=== PATIENT | male | born 1965 ===

== ENCOUNTER 2021-01-23 14:48 | Outpatient (REF) | payer OTHER, SELFPAY | END 2021-01-23 14:49 | disposition home or self-care (01) | LOC: HO.MANLNP 14:48 | PROVIDERS: PCP Physician Assistant; Visit Provider Physician Assistant | DX: N39.0 Urinary tract infection, site not specified (principal) | CPT/HCPCS: 87086 ==

== ENCOUNTER 2022-11-12 15:05 | Outpatient (REF) | payer OTHER, SELFPAY ==
[2022-11-19 19:58] LABS: Testosterone, Total 226 ng/dL (250-1100)
== END 2022-11-12 15:06 | disposition home or self-care (01) ==
LOC: HO.MANLDS 15:05
PROVIDERS: Visit Provider Physician Assistant
DX: R53.83 Other fatigue (principal)
CPT/HCPCS: 36415; 84402; 84403

== ENCOUNTER 2025-05-28 10:56 | Outpatient (REF) | payer OTHER, SELFPAY ==
[2025-05-28 13:41] LABS: MANUAL DIFF FLAG NO
[2025-05-28 13:48] LABS: Hematocrit 33.4 % (42.0-52.0); Hemoglobin 9.8 g/dl (14.0-18.0); Imm Gran Abs Auto 0.05 X10*3/uL (0.00-0.03); Imm Gran Pct Auto 0.8 % (0.0-0.4); Lymphocytes Absolute Auto 1.6 X10*3/uL (1.2-4.9); Mean Corpuscular HGB Conc 29.3 g/dl (31.0-36.0); Mean Corpuscular Hemoglobin 20.3 pg (27.0-33.0); Mean Corpuscular Volume 69.2 fL (80.0-98.0); NRBC Abs Auto 0.000 X10*3/uL (0.0-0.012); NRBC Pct Auto 0.0 /100WBC (0.0-0.2); Platelet Count 324 X10*3/uL (160-400); Red Blood Count 4.83 X10*6/uL (4.60-5.80); White Blood Count 6.5 X10*3/uL (4.8-10.8)
--- OUTSIDE RECORDS SUMMARY | 2025-05-28 14:16 | XMS_ITS | Encounter Summary ---
Author Organization [facility] Address [address] [place] [address] [place] [address] Phone Care Team Providers Care Manager Small Business Name Role Phone LidaHarish rosas Primary Care Provider [phone] Britt Can MBBS Unavailable [phone] Harish Faria DO Primary Care Provider [phone] Encounter Details Date Type Department Care Team (Latest Contact Info) Description 08/18/2017 Transcribe Orders [facility] Phleb Jemma [address] [address] Gonzalo Bautista MD [address] [place] [address], [address] [address] [email or web address] 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) Social History Tobacco Use Types Packs/Day Years Used Date Smoking Tobacco: Never Smokeless Tobacco: Never Sex and Gender Information Value Date Recorded Sex Assigned at Male 10/10/2017 11:56 AM EDT Legal Sex Male 9:41 PM EDT Gender Identity Male 10/10/2017 11:56 AM EDT Sexual Orientation Straight 10/10/2017 11 :56 AM EDT documented as of this encounter Plan of Treatment Upcoming Encounters Date Type Department Care Team (Late st Contact Info) Description 06/19/2025 9:00 AM EST Office Visit [facility] Pulmonary, Allergy and Critical Care Medicine 10 [facility] [place] [address] Emmanuel Garcia MD 10 [address] [place] [address] [email or web address] 07/05/2025 8:45 AM EST Office Visit [facility] 10 [place] [address] Unknown, Unknown, Apple Junior PA-C [address] [place] [address] 07/31/2025 12:10 PM EST Office Visit [facility] End[facility]inology [address] [place] [address] Marlo Durand DO 22 [place] [address] documented as of this encounter Results * PSA (screening) (08/18/2017 10:48 AM EST) PSA 0.70 0 - 4.00 ng/mL [facility] Blood 08/18/2017 10:4 8 AM EST 08/18/2017 10:50 AM EST us Gonzalo Bautista MD LAB BLOOD BKR ORDERABLES Final Result [facility] 30 [place] [address] documented in this encounter Visit Diagnoses Diagnosis Benign localized hyperplasia of prostate with urinary retention- Primary Benign localized hyperplasia of prostate with urinary obstruction and other lower urinary tract symptoms (LUTS) documented in this encounter Additional Health Concerns Infection Onset Date Last Indicated Resolved Time Resp-Risk 05/15/2025 05/15/2025 05/15/2025 5:22 PM EST Influenza A 05/15/2025 05/15/2025 05/22/2025 7:07 PM EST documented as of this encounter Care Teams Manager Small Business Relationship Specialty Start Date End Date Harish Faria DO PCP - General 03/31/17 08/14/24 Harish Faria DO [address] [place] [address] PCP - General Internal Medicine 08/15/24 Britt Can MBBS [address] [place] [address] [email or web address] Primary Oncologist Medical Oncology 06/12/24 documented as of this encounter Additional Source Comments The information contained in this document represents components of the legal health record. It is not the complete legal health record.[facility]
--- OUTSIDE RECORDS SUMMARY | 2025-05-28 14:16 | XMS_ITS | Encounter Summary ---
Author Organization [facility] Address [address] [place] [address] Phone Care Team Providers Care Rock Splitter Name Role Phone LidaHarish rosas Primary Care Provider [phone] Britt Can MBBS Unavailable [phone] Harish Faria DO Primary Care Provider [phone] Encounter Details Date Type Department Care Team (Latest Contact Info) Description 02/10/2024 Transcribe Orders Virtual Department [address] [place] [address] Selma Ryder PA [address] [place] [address] [place] [address] Acute bronchitis, unspecified organism (Primary Dx) Social History Tobacco Use Types Packs/Day Years Used Date Smoking Tobacco: Never Smokeless Tobacco: Never Alcohol Use Standard Drinks/Week Comments Yes 1 (1 standard drink = 0.6 oz pur e alcohol) Education Answer Date Recorded Are you interested in more education? Not on leanne e 10/08/2022 Are you concerned about learning? Not on file 10/08/2022 No 10/08/2022 No 10/08/2022 Digital Access Answer Date Recorded No 11/05/2022 No 11/05/2022 Reliable internet access at home? Not on file 11/05/2022 Device with a working camera? Not on file Intimate Partner Violence Answer Date R ecorded Are you denied basic needs s uch as food, clothing, or medical care? No 07/13/2023 In the past 12 months have y ou been in a relationship with a person who hurts, threatens, or tries to control you? No 07/13/2023 Are you denied basic needs s uch as food, clothing, or medical care? No 07/13/2023 In the past 12 months have y ou been in a relationship with a person who hurts, threatens, or tries to control you? No 07/13/2023 Sex and Gender Information Value Date Recorded [...] Pulmonary, Allergy and Critical Care Medicine 10 [place] [address] Emmanuel Garcia MD [address] [place] [address] [email or web address] 07/05/2025 8:45 AM EST Office Visit [facility] [address] [place] [address] Unknown, Unknown, Apple Junior PA-C [address] [place] [address] 07/31/2025 12:10 PM EST Office Visit [facility] [address] [place] [address] Marlo Durand DO 22 [place] [address] documented as of this encounter Visit Diagnoses Diagnosis Acute bronchitis, unspecified organism- Primary documented in this encounter Additional Health Concerns Infection Onset Date Last Indicated Resolved Time Resp-Risk 05/15/2025 05/15/2025 05/15/2025 5:22 PM EST Influenza A 05/15/2025 05/15/2025 05/22/2025 7:07 PM EST documented as of this encounter Care Teams Rock Splitter Relationship Specialty Start Date End Date LidaHarish rosasDO [email or web address] PCP - General 03/31/17 08/14/24 Harish Faria DO [address] [place] [address] [email or web address] PCP - General Internal Medicine 08/15/24 Britt Can MBBS [address] [place] [address] Primary Oncologist Medical Oncology 06/12/24 documented as of this encounter Additional Source Comments The information contained in this document represents components of the legal health record. It is not the complete legal health record.[facility]
--- OUTSIDE RECORDS SUMMARY | 2025-05-28 14:16 | XMS_ITS | Encounter Summary ---
Author Organization [facility] Address [address] [place] [address] Phone Care Team Providers Care Claim Rep Name Role Phone Britt Can ARTIS Unavailable [phone] Harish Faria DO Primary Care Provider [phone] Encounter Details Date Type Department Care Team (Late st Contact Info) Description 05/15/2025 Procedure Pass [facility] 30 [place] [address] Social History Tobacco Use Types Packs/Day Years Used Date Smoking Tobacco: Never Smokeless Tobacco: Never Alcohol Use Standard Drinks/Week Comments Not Currently 0 (1 standard drink = 0.6 oz pur e alcohol) 0-1 month Education Answer Date Recorded Are you interested in more education? Not on leanne e 10/08/2022 Are you concerned about learning? Not on file 10/08/2022 No 10/08/2022 No 10/08/2022 Food Answer Date Recorded Within the past 6 months we worried whether our food would run out before we got money to buy more. Never True 05/15/2025 Within the past 6 months the food we bought just didn't last and we didn't have enough money to get more. Never True Residential Stability Answer Date Recor ded What is your housing situation today? I have jed sing 05/15/2025 How many times have you move d in the past 12 months? Zero (I did not move) 05/15/2025 Paying for Meds Answer Date Recorded Do you have trouble paying for medicines? No 05/15/2025 Paying Utility Bills Answer Date Record ed Do you have trouble paying your heating or elect ricity bill? No 05/15/2025 Transportation Answer Date Recorded Has the lack of transportati on kept you from medical appointments or from getting medications? No 05/15/2025 Digital Access Answer Date Recorded No 05/15/2025 Yes 05/15/2025 Do you have reliable internet access at home? Ye s 05/15/2025 Do you have a device (e.g., phone, tablet, computer) with a working camera? Yes 05/15/2025 Intimate Partner Violence Answer Date R ecorded Are you denied basic needs s uch as food, clothing, or medical care? No 05/15/2025 In the past 12 months have y ou been in a relationship with a person who hurts, threatens, or tries to control you? No 05/15/2025 Are you denied basic needs s uch as food, clothing, or medical care? No 05/15/2025 In the past 12 months have y ou been in a relationship with a person who hurts, threatens, or tries to control you? No 05/15/2025 Sex and Gender Information Value Date Recorded Sex Assigned at Male 10/10/2017 11:56 AM EDT Legal Sex Male 9:41 PM EDT Gender Identity Male 10/10/2017 11:56 AM EDT Sexual Orientation Straight 10/10/2017 11 :56 AM EDT documented as of this encounter Functional Status * Calculated C-SSRS Risk Score (Lifetime/Recent) Answer Date of Assessment Author No Risk Indicated 05/15/2025 3:03 PM Adrianne Andrade RN * [place] Suicide Severity Rating Scale (Screener/Recent Self-Report) Question Answer Date of Assessment Author 1. Wish to be (Past 1 Month) No 025 3:03 PM Adrianne Andrade RN 2. Non-Specific Active Suici mary Thoughts (Past 1 Month) No 05/15/2025 3:03 PM Hayden Andrade RN 6. Suicidal Behavior (Lifetime) No 3:03 PM Adrianne Andrade RN documented as of this encounter Plan of Treatment Upcoming Encounters Date Type Department Care Team (Late st Contact Info) Description 06/19/2025 9:00 AM EST Office Visit [facility] Pulmonary, Allergy and Critical Care Medicine 10 [facility] [place] [address] Emmanuel Garcia MD 10 [facility] 2nd [place] [address] [email or web address] 07/05/2025 8:45 AM EST Office Visit [facility] Gastroenterology [facility] 10 [place] [address] Unknown, Unknown, Apple Junior PA-C [address] [address] 07/31/2025 12:10 PM EST Office Visit [facility] 22 [place] [address] Marlo Durand DO [address] [place] [address] documented as of this encounter Visit Diagnoses Not on filedocumented in this encounter Additional Health Concerns Infection Onset Date Last Indicated Resolved Time Resp-Risk 05/15/2025 05/15/2025 05/15/2025 5:22 PM EST Influenza A 05/15/2025 05/15/2025 05/22/2025 7:07 PM EST documented as of this encounter Care Teams Claim Rep Relationship Specialty Start Date End Date Harish Faria DO [address] [facility] [place] [address] PCP - General Internal Medicine 08/15/24 Britt Can MBBS 30 [place] [address] Primary Oncologist Medical Oncology 06/12/24 documented as of this encounter Additional Source Comments The information contained in this document represents components of the legal health record. It is not the complete legal health record.[facility]
--- OUTSIDE RECORDS SUMMARY | 2025-05-28 14:16 | XMS_ITS | Encounter Summary ---
Author Organization [facility] Address [address] [place] [address] Phone Care Team Providers Care Skimmer Scoop Operator Name Role Phone Britt Can ARTIS Unavailable [phone] Harish Faria DO Primary Care Provider Encounter Details Date Type Department Care Team (Latest Contact Info) Description 01/22/2025 Transcribe Orders Virtual Department 30 [place] [address] Selma Ryder PA 6 [facility] [place] [address] Acute bronchitis, unspecified organism (Primary Dx) Social [...] got money to buy more. Never True 09/20/2024 Within the past 6 months the food we bought just didn't last and we didn't have enough money to get more. Never True Residential Stability Answer Date Recor ded What is your housing situation today? I have jed sing 09/20/2024 How many times have you move d in the past 12 months? Zero (I did not move) 09/20/2024 Paying for Meds Answer Date Recorded Do you have trouble paying for medicines? No 09/20/2024 Paying Utility Bills Answer Date Record ed Do you have trouble paying your heating or elect ricity bill? No 09/20/2024 Transportation Answer Date Recorded Has the lack of transportati on kept you from medical appointments or from getting medications? No 09/20/2024 Digital Access Answer Date Recorded No 09/20/2024 Yes 09/20/2024 Do you have reliable internet access at home? Ye s 09/20/2024 Do you have a device (e.g., phone, tablet, computer) with a working camera? Yes 09/20/2024 Intimate Partner Violence Answer Date R ecorded Are you denied basic needs s uch as food, clothing, or medical care? No 09/20/2024 In the past 12 months have y ou been in a relationship with a person who hurts, threatens, or tries to control you? No 09/20/2024 Are you denied basic needs s uch as food, clothing, or medical care? No 09/20/2024 In the past 12 months have y ou been in a relationship with a person who hurts, threatens, or tries to control you? No 09/20/2024 Sex and Gender Information Value Date Recorded [...] Pulmonary, Allergy and Critical Care Medicine 10 [place] [address] Emmanuel Garcia MD [address] [place] [address] [email or web address] 07/05/2025 8:45 AM EST Office Visit [facility] 10 [place] [address] Unknown, Unknown, Apple Junior, PAYogeshC 10 [facility] 2 [place] [address] [email or web address] 07/31/2025 12:10 PM EST Office Visit [facility] [address] [place] [address] Marlo Durand, DO 22 [place] [address] [email or web address] documented as of this encounter Results * XR CHEST PA AND LATERAL 2 VIEWS (01/23/2025 12:34 PM EDT) Anatomical Region Laterality Modality Chest Computed Radiogr aphy 01/23/2025 12:5 6 PM EDT Impressions 01/23/2025 12:57 PM EDT No focal infiltrate or other acute cardiopulmonary abnormality. Narrative 01/23/2025 12:57 PM EDT XR CHEST PA AND LATERAL 2 VIEWS Referring clinician's provided indication for this examination in [facility]: Bronchitis; bronchitis COMPARISON: 01/04/2023 and 10/27/2022 chest radiographs FINDINGS: Devices/Tubes/Lines: None. Lungs: Moderately well-expanded without focal airspace infiltrate or significant interstitial changes. Pleura: No pleural effusion or pneumothorax. Heart/Mediastinum: Heart and pulmonary vessels within normal limits in size. Bones/Soft Tissues: Visualized bony thorax intact. Flowing ossification of the anterior longitudinal ligament in the thoracic spine suggesting underlying DISH. Procedure Note Bolivar Rivera MD - 01/23/2025 XR CHEST PA AND LATERAL 2 VIEWS Referring clinician's provided indication for this examination in [facility]:Bronchitis; bronchitis COMPARISON: 01/04/2023 and 10/27/2022 chest radiographs FINDINGS: Devices/Tubes/Lines: None. Lungs: Moderately well-expanded without focal airspace infiltrate orsignificant interstitial changes. Pleura: No pleural effusion or pneumothorax. Heart/Mediastinum: Heart and pulmonary vessels within normal limits insize. Bones/Soft Tissues: Visualized bony thorax intact. Flowing ossification ofthe anterior longitudinal ligament in the thoracic spine suggestingunderlying DISH. IMPRESSION: No focal infiltrate or other acute cardiopulmonary abnormality. us Selma PRIETO IMG XR CHEST Final Resul t documented in this encounter Visit Diagnoses Diagnosis Acute bronchitis, unspecified organism- Primary Acute bronchitis, unspecified organism documented in this encounter Additional Health Concerns Infection Onset Date Last Indicated Resolved Time Resp-Risk 05/15/2025 05/15/2025 05/15/2025 5:22 PM EST Influenza A 05/15/2025 05/15/2025 05/22/2025 7:07 PM EST documented as of this encounter Care Teams Skimmer Scoop Operator Relationship Specialty Start Date End Date Harish Faria DO [address] [place] [address] [email or web address] PCP - General Internal Medicine 08/15/24 Britt Can MBBS [address] [place] [address] [email or web address] Primary Oncologist Medical Oncology 06/12/24 documented as of this encounter Additional Source Comments The information contained in this document represents components of the legal health record. It is not the complete legal health record.[facility]
--- OUTSIDE RECORDS SUMMARY | 2025-05-28 14:16 | XMS_ITS | Encounter Summary ---
Author Organization [facility] Address [address] [place] [address] Phone Care Team Providers Care Detention Sergeant Name Role Phone Harish Faria DO Primary Care Provider [phone] Britt Can MBBS Unavailable [phone] Harish Faria DO Primary Care Provider [phone] Encounter Details Date Type Department Care Team (Late st Contact Info) Description 07/13/2023 Procedure Pass [facility] Endoscopy Admitting Dept Virtual Department 30 [place], [place] [id number] Social History Tobacco Use Types Packs/Day Years [...] Pulmonary, Allergy and Critical Care Medicine 10 [place] [address] Emmanuel Garcia MD 10 [facility] 2nd [place] [address] [email or web address] 07/05/2025 8:45 AM EST Office Visit [facility] Gastroenterology Clinic 10 [place] [address] Unknown, Unknown, Apple Junior PAViridiana [address] [address] 07/31/2025 12:10 PM EST Office Visit [facility] 22 [place] [address] Marlo Durand DO 22 [place] [address] documented as of this encounter Visit Diagnoses Not on filedocumented in this encounter Additional Health Concerns Infection Onset Date Last Indicated Resolved Time Resp-Risk 05/15/2025 05/15/2025 05/15/2025 5:22 PM EST Influenza A 05/15/2025 05/15/2025 05/22/2025 7:07 PM EST documented as of this encounter Care Teams Detention Sergeant Relationship Specialty Start Date End Date Harish Faria DO [email or web address] PCP - General 03/31/17 08/14/24 LidaHarish rosasDO [address] [place] [address] PCP - General Internal Medicine 08/15/24 Britt Can MBBS 30 [place] [address] [email or web address] Primary Oncologist Medical Oncology 06/12/24 documented as of this encounter Additional Source Comments The information contained in this document represents components of the legal health record. It is not the complete legal health record.[facility]
--- OUTSIDE RECORDS SUMMARY | 2025-05-28 14:16 | XMS_ITS | Encounter Summary ---
Author Organization [facility] Address [address] [place] [address] Phone Care Team Providers Care Medical Record Administrator Name Role Phone Britt Can ARTIS Unavailable [phone] Harish Faria DO Primary Care Provider [phone] Encounter Details Date Type Department Care Team (Late st Contact Info) Description 05/15/2025 Procedure Pass [facility] 30 [place] [address] Social History Tobacco Use Types Packs/Day Years [...] 05/15/2025 3:03 PM Adrianne Andrade RN * [place] Suicide Severity Rating Scale (Screener/Recent Self-Report) Question [...] Pulmonary, Allergy and Critical Care Medicine 10 [facility] [place] [address] Emmanuel Garcia MD 10 [facility] 2nd [place] [address] [email or web address] 07/05/2025 8:45 AM EST Office Visit [facility]astro[facility]ology Clinic 10 [place] [address] Unknown, Unknown, Apple Junior PA-C [address] [address] 07/31/2025 12:10 PM EST Office Visit [facility] 22 [place] [address] Marlo Durand DO [address] [place] [address] documented as of this encounter Visit Diagnoses Not on filedocumented in this encounter Additional Health Concerns Infection Onset Date Last Indicated Resolved Time Resp-Risk 05/15/2025 05/15/2025 05/15/2025 5:22 PM EST Influenza A 05/15/2025 05/15/2025 05/22/2025 7:07 PM EST documented as of this encounter Care Teams Medical Record Administrator Relationship Specialty Start Date End Date Harish Faria DO [address] [place] [address] PCP - General Internal Medicine 08/15/24 Britt Can MBBS 30 [place] [address] Primary Oncologist Medical Oncology 06/12/24 documented as of this encounter Additional Source Comments The information contained in this document represents components of the legal health record. It is not the complete legal health record.[facility]
--- OUTSIDE RECORDS SUMMARY | 2025-05-28 14:16 | XMS_ITS | Encounter Summary ---
Author Organization [facility] Address [address] [place] [address] [place] [address] Phone Care Team Providers Care Cryptological Technician Name Role Phone LidaHarish rosas Primary Care Provider [phone] Britt Can MBBS Unavailable [phone] Harish Faria DO Primary Care Provider [phone] Encounter Details Date Type Department Care Team (Latest Contact Info) Description 05/12/2021 Transcribe Orders Virtual Department 30 [place] [address] Selma Ryder PA [address] [place] [address] Acute cough (Primary Dx) Social History Tobacco Use Types Packs/Day Years Used Date Smoking Tobacco: Never Smokeless Tobacco: Never Alcohol Use Standard Drinks/Week Comments Yes 0 (1 standard drink = 0.6 oz pur e alcohol) occassionally Sex and Gender Information Value Date Recorded [...] Critical Care Medicine 10 [facility] [place], [place] [id number] Emmanuel Garcia MD 10 [facility] 2nd [place] [address] [email or web address] 07/05/2025 8:45 AM EST Office Visit [facility] 10 [place] [address] Unknown, Unknown, Apple Junior, PA-C [address] [address] 07/31/2025 12:10 PM EST Office Visit [facility] 22 [place] [address] Marlo Durand DO 22 [place] [address] documented as of this encounter Results * XR CHEST PA AND LATERAL 2 VIEWS (05/22/2021 11:45 AM EST) Anatomical Region Laterality Modality Chest Computed Radiogr aphy 05/22/2021 11:4 9 AM EST Impressions 05/22/2021 11:51 AM EST No evidence of active cardiopulmonary disease. Narrative 05/22/2021 11:51 AM EST HISTORY: Acute cough. COMPARISON: Chest x-rays from 10/10/2017 to 02/26/2019. FINDINGS: PA and lateral views of the chest obtained. The lungs appear clear. No pleural effusions or pneumothorax. Great vessel and cardiomediastinal contours are stable. No other significant changes. Procedure Note Lv Montero MD - 05/22/2021 HISTORY: Acute cough. COMPARISON: Chest x-rays from 10/10/2017 to 02/26/2019. FINDINGS: PA and lateral views of the chest obtained. The lungs appear clear. No pleural effusions or pneumothorax. Great vessel and cardiomediastinal contours are stable. No other significant changes. IMPRESSION: No evidence of active cardiopulmonary disease. us Selma PRIETO IMG XR CHEST Final Resul t documented in this encounter Visit Diagnoses Diagnosis Acute cough- Primary Acute cough documented in this encounter Additional Health Concerns Infection Onset Date Last Indicated Resolved Time Resp-Risk 05/15/2025 05/15/2025 05/15/2025 5:22 PM EST Influenza A 05/15/2025 05/15/2025 05/22/2025 7:07 PM EST documented as of this encounter Care Teams Cryptological Technician Relationship Specialty Start Date End Date Harish Faria DO PCP - General 03/31/17 08/14/24 Harish Faria DO [address] [place] [address] PCP - General Internal Medicine 08/15/24 Britt Can MBBS 30 [place] [address] Primary Oncologist Medical Oncology 06/12/24 documented as of this encounter Additional Source Comments The information contained in this document represents components of the legal health record. It is not the complete legal health record.[facility]
--- OUTSIDE RECORDS SUMMARY | 2025-05-28 14:16 | XMS_ITS | Encounter Summary ---
Author Organization Located [facility] Address [address] [place] [address] Drive [address] [place] [address] Phone Care Team Providers Care Job Counselor Name Role Phone Giana Harish Cabrera DO Primary Care Provider [phone] Britt CanBS Unavailable [phone] Harish Faria DO Primary Care Provider [phone] Reason for Referral * MRI/CAT Scan - Closed Specialty Diagnoses / Procedures Referred By Rehana munoz Referred To Contact Radiology Diagnoses Splenomegaly, not elsewhere classified Procedures CT Abdomen/Pelvis CHG CT SCAN,ABDOMENT AND PELVIS,W CONTRAST CHG CT SCAN,ABDOMENT AND PELVIS,COMBO CHG CT SCAN,ABDOMENT AND PELVIS,W/O CONTRAST Selma Ryder PA Phone: tel: fax: Referral ID Status Reason Start Date Expiration Date Visits Re quested Visits Authorized [id number] Closed 01/26/2021 02/24/2021 1 1 Encounter Details Date Type Department Care Team (Latest Contact Info) Description 01/26/2021 Transcribe Orders [facility] Department 30 [place] [address] Selma Ryder PA 6 [facility] [place] [address] Splenomegaly, not elsewhere classified (Primary Dx) Social History Tobacco Use Types [...] Pulmonary, Allergy and Critical Care Medicine 10 [place] [address] Emmanuel Garcia MD [address] [place] [address] 2nd [place] [address] [email or web address] 07/05/2025 8:45 AM EST Office Visit [facility] G[facility]ology [facility] 10 [place] [address] Unknown, Unknown, Apple Junior PA-C [address] [place] [address] 07/31/2025 12:10 PM EST Office Visit [facility] [address] [place] [address] Marlo Durand DO 22 [place] [address] documented as of this encounter Results * CT ABDOMEN/PELVIS WITH CONTRAST (02/13/2021 3:31 PM EDT) Anatomical Region Laterality Modality Abdomen, Pelvis Computed Tomogra phy 02/13/2021 3:3 4 PM EDT Impressions 02/13/2021 3:45 PM EDT 1.No acute abdominal or pelvic findings. No evidence of splenomegaly. 2.Chronic hepatic steatosis. 3.Additional findings as above. Narrative 02/13/2021 3:45 PM EDT COMPARISON: CT abdomen 04/20/2019. CT abdomen pelvis 03/23/2017. TECHNIQUE: CT abdomen and pelvis with IV and oral contrast. Multiplanar reformatted images generated. Automated exposure control utilized. CT ABDOMEN AND PELVIS FINDINGS: Lung bases/heart: Chronic within posterior pericardial calcification. No effusion. Heart is normal in size. Lung bases are clear. Spleen: Normal. Liver: Stable diffuse low-attenuation indicative of steatosis. Gallbladder/biliary tree: Normal. Pancreas: Normal. Adrenal glands: Normal. Vasculature: Stable atherosclerosis. No AAA or acute findings. Genitourinary: Kidneys, bladder and prostate are normal. Gastrointestinal tract: Stomach, small bowel and appendix are normal. Mild sigmoid colon diverticulosis. Peritoneum/retroperitoneum: Decrease in size of the chronic right inguinal lymph nodes measuring up to 1.1 cm in short axis compared to 1.4 cm. These are reactive. No suspicious enlarged lymph nodes, ascites or fluid collections. Musculoskeletal: Chronic small fat-containing umbilical and bilateral inguinal hernias. Right inguinal scarring. No compression fractures. No destructive or spacious bone lesions. Stable lower thoracic endplate spurring and mild bilateral hip osteoarthritis.. Procedure Note Parmjit Jara MD - 02/13/2021 COMPARISON: CT abdomen 04/20/2019. CT abdomen pelvis 03/23/2017. TECHNIQUE: CT abdomen and pelvis with IV and oral contrast. Multiplanarreformatted images generated. Automated exposure control utilized. CT ABDOMEN AND PELVIS FINDINGS: Lung bases/heart: Chronic within posterior pericardial calcification. Noeffusion. Heart is normal in size. Lung bases are clear. Spleen: Normal. Liver: Stable diffuse low-attenuation indicative of steatosis. Gallbladder/biliary tree: Normal. Pancreas: Normal. Adrenal glands: Normal. Vasculature: Stable atherosclerosis. No AAA or acute findings. Genitourinary: Kidneys, bladder and prostate are normal. Gastrointestinal tract: Stomach, small bowel and appendix are normal. Mildsigmoid colon diverticulosis. Peritoneum/retroperitoneum: Decrease in size of the chronic rightinguinal lymph nodes measuring up to 1.1 cm in short axis compared to 1.4cm. These are reactive. No suspicious enlarged lymph nodes, ascites orfluid collections. Musculoskeletal: Chronic small fat-containing umbilical and bilateralinguinal hernias. Right inguinal scarring. No compression fractures. Nodestructive or spacious bone lesions. Stable lower thoracic endplatespurring and mild bilateral hip osteoarthritis.. IMPRESSION: 1.No acute abdominal or pelvic findings. No evidence of splenomegaly. 2.Chronic hepatic steatosis. 3.Additional findings as above. Selma PRIETO IMG CT ABD/PELVIS Final Res ult documented in this encounter Visit Diagnoses Diagnosis Splenomegaly, not elsewhere classified- Primary Splenomegaly, not elsewhere classified documented in this encounter Additional Health Concerns Infection Onset Date Last Indicated Resolved Time Resp-Risk 05/15/2025 05/15/2025 05/15/2025 5:22 PM EST Influenza A 05/15/2025 05/15/2025 05/22/2025 7:07 PM EST documented as of this encounter Care Teams Job Counselor Relationship Specialty Start Date End Date Harish Faria DO PCP - General 03/31/17 08/14/24 Harish Faria DO [address] [place] [address] PCP - General Internal Medicine 08/15/24 Britt Can MBBS 30 [place] [address] Primary Oncologist Medical Oncology 06/12/24 documented as of this encounter Additional Source Comments The information contained in this document represents components of the legal health record. It is not the complete legal health record.[facility]
--- OUTSIDE RECORDS SUMMARY | 2025-05-28 14:16 | XMS_ITS | Encounter Summary ---
Author Organization [facility] Address [address] [place] [address] Drive [address] [place] [address] Phone Care Team Providers Care Sanding Supervisor Name Role Phone Harish Faria DO Primary Care Provider [phone] Britt Can MBBS Unavailable [phone] Harish Faria DO Primary Care Provider [phone] Encounter Details Date Type Department Care Team (Late st Contact Info) Description 01/26/2021 Procedure Pass [facility], Ct Scan - [address] [address] Social History Tobacco Use Types Packs/Day Years [...] Pulmonary, Allergy and Critical Care Medicine 10 [facility] [place] [address] Emmanuel Garcia MD 10 [facility] 2nd [place] [address] [email or web address] 07/05/2025 8:45 AM EST Office Visit [facility] 10 [place] [address] Unknown, Unknown, Apple Junior PA-C [address] [address] 07/31/2025 12:10 PM EST Office Visit [facility] 22 [place] [address] Marlo Durand, DO [address] [place] [address] documented as of this encounter Visit Diagnoses Not on filedocumented in this encounter Additional Health Concerns Infection Onset Date Last Indicated Resolved Time Resp-Risk 05/15/2025 05/15/2025 05/15/2025 5:22 PM EST Influenza A 05/15/2025 05/15/2025 05/22/2025 7:07 PM EST documented as of this encounter Care Teams Sanding Supervisor Relationship Specialty Start Date End Date Harish Faria DO PCP - General 03/31/17 08/14/24 Harish Faria DO [address] [place] [address] PCP - General Internal Medicine 08/15/24 Britt Can MBBS [address] [place] [address] Primary Oncologist Medical Oncology 06/12/24 documented as of this encounter Additional Source Comments The information contained in this document represents components of the legal health record. It is not the complete legal health record.[facility]
--- OUTSIDE RECORDS SUMMARY | 2025-05-28 14:16 | XMS_ITS | Encounter Summary ---
Author Organization [facility] Address [address] [place] [address] Drive [address] [place] [address] Phone Care Team Providers Care Microfiche Camera Operator Name Role Phone Harish Faria DO Primary Care Provider [phone] Britt Can MBBS Unavailable [phone] Harish Faria DO Primary Care Provider [phone] Encounter Details Date Type Department Care Team (Late st Contact Info) Description 05/25/2023 Procedure Pass [facility]oscopy Admitting Dept Virtual Department 30 [place], [place] [id number] Social History Tobacco Use Types Packs/Day Years Used Date Smoking Tobacco: Never Smokeless Tobacco: Never Alcohol Use Standard Drinks/Week Comments Yes 0 (1 standard drink = 0.6 oz pur e alcohol) occassionally Education Answer Date Recorded Are you interested in more education? Not on leanne e 10/08/2022 Are you concerned about learning? Not on file 10/08/2022 No 10/08/2022 No 10/08/2022 Digital Access Answer Date Recorded No 11/05/2022 No 11/05/2022 Reliable internet access at home? Not on file 11/05/2022 Device with a working camera? Not on file Sex and Gender Information Value Date Recorded [...] Pulmonary, Allergy and Critical Care Medicine 10 [facility] [place] [address] Emmanuel Garcia MD 10 [facility] 2nd [place] [address] [email or web address] 07/05/2025 8:45 AM EST Office Visit [facility] 10 [place] [address] Unknown, Unknown, Apple Junior PA-C [address] [address] 07/31/2025 12:10 PM EST Office Visit [facility] [address] [place] [address] Marlo Durand DO [address] [place] [address] documented as of this encounter Visit Diagnoses Not on filedocumented in this encounter Additional Health Concerns Infection Onset Date Last Indicated Resolved Time Resp-Risk 05/15/2025 05/15/2025 05/15/2025 5:22 PM EST Influenza A 05/15/2025 05/15/2025 05/22/2025 7:07 PM EST documented as of this encounter Care Teams Microfiche Camera Operator Relationship Specialty Start Date End Date Harish Faria DO PCP - General 03/31/17 08/14/24 Harish Faria DO [address] [place] [address] [place] [address] PCP - General Internal Medicine 08/15/24 Britt Can MBBS [address] [place] [address] [email or web address] Primary Oncologist Medical Oncology 06/12/24 documented as of this encounter Additional Source Comments The information contained in this document represents components of the legal health record. It is not the complete legal health record.[facility]
--- OUTSIDE RECORDS SUMMARY | 2025-05-28 14:16 | XMS_ITS | Encounter Summary ---
Author Organization [facility] Address [address] [place] [address] [place] [address] Phone Care Team Providers Care Nuclear Design Engineer Name Role Phone Harish Faria DO Primary Care Provider Britt Can MBBS Unavailable [phone] Harish Faria DO Primary Care Provider [phone] Encounter Details Date Type Department Care Team (Late st Contact Info) Description 08/18/2017 Transcribe Orders [facility] Jemma [address] [id number] Harish Faria DO 179 [facility] [place] [address] [email or web address] Social History Tobacco Use Types Packs/Day Years [...] Pulmonary, Allergy and Critical Care Medicine 10 [place] [address] Emmanuel Garcia MD [address] [phone] [email or web address] 07/05/2025 8:45 AM EST Office Visit [facility]astro[facility] 10 [place] [address] Unknown, Unknown, Apple Junior PA-C [address] [address] 07/31/2025 12:10 PM EST Office Visit [facility] [address] [place] [address] Marlo Durand DO [address] [place] [address] documented as of this encounter Visit Diagnoses Not on filedocumented in this encounter Additional Health Concerns Infection Onset Date Last Indicated Resolved Time Resp-Risk 05/15/2025 05/15/2025 05/15/2025 5:22 PM EST Influenza A 05/15/2025 05/15/2025 05/22/2025 7:07 PM EST documented as of this encounter Care Teams Nuclear Design Engineer Relationship Specialty Start Date End Date Harish Faria DO PCP - General 03/31/17 08/14/24 Harish Faria DO [address] [place] [address] PCP - General Internal Medicine 08/15/24 Britt Can MBBS [address] [place] [address] Primary Oncologist Medical Oncology 06/12/24 documented as of this encounter Additional Source Comments The information contained in this document represents components of the legal health record. It is not the complete legal health record.[facility]
--- OUTSIDE RECORDS SUMMARY | 2025-05-28 14:16 | XMS_ITS | Encounter Summary ---
Author Organization [facility] Address [address] [place] [address] [place] [address] Phone Care Team Providers Care Sole Leveling Machine Operator Name Role Phone LidaHarish rosas Primary Care Provider [phone] Britt Can MBBS Unavailable [phone] Harish Faria DO Primary Care Provider [phone] Encounter Details Date Type Department Care Team (Late st Contact Info) Description 12/26/2017 Ancillary Orders Virtual Department 30 [place], [place] [phone] Klaudia Tomlinson PA-C [address] [place]. [address] [place] [address] [email or web address] Pneumonitis; Pneumonia, ventilator associated Social History Tobacco Use Types Packs/Day Years Used Date Smoking Tobacco: Never Smokeless Tobacco: Never Alcohol Use Standard Drinks/Week Comments Yes 0 (1 standard drink = 0.6 oz pur e alcohol) Sex and Gender Information Value Date Recorded Sex Assigned at Male 10/10/2017 11:56 AM EDT Legal Sex Male 9:41 PM EDT Gender Identity Male 10/10/2017 11:56 AM EDT Sexual Orientation Straight 10/10/2017 11 :56 AM EDT documented as of this encounter Plan of Treatment Upcoming Encounters Date Type Department Care Team (Late Contact Info) Description 06/19/2025 9:00 AM EST Office Visit [facility] Pulmonary, Allergy and Critical Care Medicine 10 [place] [address] Emmanuel Garcia MD 10 [facility] 2nd [place] [address] [email or web address] 07/05/2025 8:45 AM EST Office Visit [facility] 10 [place] [address] Unknown, Unknown, Apple Junior PA-C [address] [address] 07/31/2025 12:10 PM EST Office Visit [facility] 22 [place] [address] Marlo Durand DO 22 [place] [address] documented as of this encounter Results * XR CHEST PA AND LATERAL 2 VIEWS (12/27/2017 10:34 AM EDT) Anatomical Region Laterality Modality Chest Radiographic Gloria ging 12/27/2017 11:1 2 AM EDT Impressions 12/27/2017 11:18 AM EDT No evidence of an acute cardiopulmonary process. POS - [id number] Narrative 12/27/2017 11:18 AM EDT HISTORY: See above. COMPARISON: 10/10/2017, 11/24/2015 FINDINGS: PA views of the chest are obtained during inspiration and expiration. Lateral view also performed. No focal infiltrate, pleural effusion, or evidence of pulmonary edema. No pneumothorax detected. Chronic eventration of the right hemidiaphragm. Heart and mediastinal contours are stable. Stable calcification at the lateral margin of the left humeral head from calcific tendinopathy. No new compression deformities. Bulky bridging endplate osteophytes in the mid and lower thoracic spine. Procedure Note Sancho Castellanos MD - 12/27/2017 HISTORY: See above. COMPARISON: 10/10/2017, 11/24/2015 FINDINGS: PA views of the chest are obtained during inspiration and expiration.Lateral view also performed. No focal infiltrate, pleural effusion, or evidence of pulmonary edema. Nopneumothorax detected. Chronic eventration of the right hemidiaphragm.Heart and mediastinal contours are stable. Stable calcification at thelateral margin of the left humeral head from calcific tendinopathy. Nonew compression deformities. Bulky bridging endplate osteophytes in themid and lower thoracic spine. IMPRESSION: No evidence of an acute cardiopulmonary process. POS - [id number] September Davi WELLS IMG XR CHEST Final Result documented in this encounter Visit Diagnoses Diagnosis Pneumonitis Pneumonia, organism unspecified Pneumonia, ventilator associated Ventilator associated pneumonia Pneumonitis Pneumonia, organism unspecified Pneumonia, ventilator associated Ventilator associated pneumonia documented in this encounter Additional Health Concerns Infection Onset Date Last Indicated Resolved Time Resp-Risk 05/15/2025 05/15/2025 05/15/2025 5:22 PM EST Influenza A 05/15/2025 05/15/2025 05/22/2025 7:07 PM EST documented as of this encounter Care Teams Sole Leveling Machine Operator Relationship Specialty Start Date End Date Harish Faria DO PCP - General 03/31/17 08/14/24 Harish Faria DO [address] [place] [address] PCP - General Internal Medicine 08/15/24 Britt Can MBBS [address] [place] [address] Primary Oncologist Medical Oncology 06/12/24 documented as of this encounter Additional Source Comments The information contained in this document represents components of the legal health record. It is not the complete legal health record.[facility]
--- OUTSIDE RECORDS SUMMARY | 2025-05-28 14:17 | XMS_ITS | Encounter Summary ---
Author Organization [facility] Address [address] [place] [address] Phone Care Team Providers Care Adjunct Mathematics Instructor Name Role Phone Britt Can MBJANA Unavailable [phone] Harish Faria DO Primary Care Provider [phone] Encounter Details Date Type Department Care Team (Latest Contact Info) Description 02/06/2025 Transcribe Orders [facility] Phleb Jemma [address] 2nd Floor [place], [place] [id number] Sapna Ray, PROSPER 10 [place], [place] [id number] Dysphagia, pharyngoesophageal phase (Primary Dx) Social History Tobacco Use Types [...] your housing situation today? I have jed barger 09/20/2024 How many times have you move [...] Pulmonary, Allergy and Critical Care Medicine 10 [place] [address] Emmanuel Garcia MD [address] [address] [email or web address] 07/05/2025 8:45 AM EST Office Visit [facility] Gastroenterology Clinic 10 [place] [address] Unknown, Unknown, Apple Junior PA-C [address] [address] 07/31/2025 12:10 PM EST Office Visit [facility] 22 [place] [address] Marlo Durand, DO 22 [place] [address] [email or web address] documented as of this encounter Results * (ABNORMAL) Ferritin (02/06/2025 10:35 AM EDT) FERRITIN 17(L) 30 - 400 ug/L [facility] Blood 02/06/2025 10:3 5 AM EDT 02/06/2025 10:38 AM EDT us Sapna Ray [employer] LAB BLOOD BKR O RDERABLES Final Result Performing Organization Address City/[facility]/ZIP Co de Phone Number [address] [address] * (ABNORMAL) Iron and iron binding capacity (02/06/2025 10:35 AM EDT) IRON 31(L) 45 - 160 ug/dL [facility] IRON BINDING CAPACITY 422 228 - 428 ug/dL [facility] TRANSFERRIN SATURAT. 7(L) 20 - 55 % [facility] Blood 02/06/2025 10:3 5 AM EDT 02/06/2025 10:38 AM EDT us Sapna Ray [employer] LAB BLOOD BKR O RDERABLES Final Result Performing Organization Address City/[facility]/ZIP Co de Phone Number [address] [address] * (ABNORMAL) CBC (02/06/2025 10:35 AM EDT) WBC 5.02 4.00 - 11.00 K/uL [facility] RBC 3.76(L) 4.50 - 5.90 M/uL [facility] HGB 9.2(L) 13.5 - 17.5 g/dL [facility] HCT 30.0(L) 41.0 - 53.0 % [facility] PLT 226 150 - 450 K/uL [facility] MCV 79.8(L) 80.0 - 100.0 fL [facility] MCH 24.5(L) 27.0 - 31.0 pg [facility] MCHC 30.7(L) 32.0 - 36.0 g/dL [facility] RDW 14.2 11.5 - 14.5 % [facility] MPV 10.4 8.4 - 12.0 fL [facility] NRBC 0.00 0.00 /100 WBCs [facility] ABSOLUTE NRBC 0.00 0.00 K/uL [facility] Blood 02/06/2025 10:3 5 AM EDT 02/06/2025 10:38 AM EDT us Sapna Ray [employer] BLOOD BKR O RDERABLES Final Result Performing Organization Address City/State/[facility] Co de Phone Number [facility] 30 [place] [address] documented in this encounter Visit Diagnoses Diagnosis Dysphagia, pharyngoesophageal phase- Primary documented in this encounter Additional Health Concerns Infection Onset Date Last Indicated Resolved Time Resp-Risk 05/15/2025 05/15/2025 05/15/2025 5:22 PM EST Influenza A 05/15/2025 05/15/2025 05/22/2025 7:07 PM EST documented as of this encounter Care Teams Adjunct Mathematics Instructor Relationship Specialty Start Date End Date Harish Faria DO [address] [place] [address] [email or web address] PCP - General Internal Medicine 08/15/24 Britt Can MBBS [address] [place] [address] [email or web address] Primary Oncologist Medical Oncology 06/12/24 documented as of this encounter Additional Source Comments The information contained in this document represents components of the legal health record. It is not the complete legal health record.[facility]
--- OUTSIDE RECORDS SUMMARY | 2025-05-28 14:17 | XMS_ITS | Encounter Summary ---
Author Organization [facility] Address [address] [place] [address] Phone Care Team Providers Care Plastic Shaper Name Role Phone Britt Can ARTIS Unavailable [phone] Harish Faria DO Primary Care Provider [phone] Encounter Details Date Type Department Care Team (Late st Contact Info) Description 02/20/2025 Procedure Pass [facility] Endoscopy Admitting Dept Virtual Department 30 [place] [address] Social History Tobacco Use Types Packs/Day Years [...] as food, clothing, or medical care? No 02/20/2025 In the past 12 months have y ou been in a relationship with a person who hurts, threatens, or tries to control you? No 02/20/2025 Are you denied basic needs s uch as food, clothing, or medical care? No 02/20/2025 In the past 12 months have y ou been in a relationship with a person who hurts, threatens, or tries to control you? No 02/20/2025 Sex and Gender Information Value Date Recorded [...] Critical Care Medicine 10 [facility] [place] [address] Emmanuel Garcia MD [address] [address] [email or web address] 07/05/2025 8:45 AM EST Office Visit [facility] Gastroenterology Clinic 10 [place] [address] Unknown, Unknown, Apple Junior PAYogeshC [address] [place] [address] 07/31/2025 12:10 PM EST Office Visit [facility] 22 [place] [address] Marlo Durand DO 22 [place] [address] documented as of this encounter Visit Diagnoses Not on filedocumented in this encounter Additional Health Concerns Infection Onset Date Last Indicated Resolved Time Resp-Risk 05/15/2025 05/15/2025 05/15/2025 5:22 PM EST Influenza A 05/15/2025 05/15/2025 05/22/2025 7:07 PM EST documented as of this encounter Care Teams Plastic Shaper Relationship Specialty Start Date End Date Harish Faria DO [address] [place] [address] PCP - General Internal Medicine 08/15/24 Britt Can MBBS 30 [place] [address] Primary Oncologist Medical Oncology 06/12/24 documented as of this encounter Additional Source Comments The information contained in this document represents components of the legal health record. It is not the complete legal health record.[facility]
--- OUTSIDE RECORDS SUMMARY | 2025-05-28 14:17 | XMS_ITS | Encounter Summary ---
Author Organization [facility] Address [address] [place] [address] Drive [address] [place] [address] Phone Care Team Providers Care Urologic Surgeon Name Role Phone Giana Harish Cabrera DO Primary Care Provider [phone] Britt Can MBBS Unavailable [phone] Harish Faria DO Primary Care Provider [phone] Reason for Referral * MRI/CAT Scan - Closed Specialty Diagnoses / Procedures Referred By Rehana munoz Referred To Contact Radiology Diagnoses Abdominal pain, LUQ Procedures CT Abdomen Only (No Pelvis) Giovani Garnica MD Phone: tel: fax: mailto: Referral ID Status Reason Start Date Expiration Date Visits Re quested Visits Authorized [id number] Closed 04/09/2019 05/08/2019 1 1 Encounter Details Date Type Department Care Team (Latest Contact Info) Description 04/09/2019 Transcribe Orders Virtual Department 30 [place] [address] Giovani Garnica MD [address] [place] [address] [email or web address] Abdominal pain, LUQ (Primary Dx) Social History Tobacco Use Types [...] Pulmonary, Allergy and Critical Care Medicine 10 [place] [address] Emmanuel Garcia MD [address] [place] [address] 2nd [place] [address] [email or web address] 07/05/2025 8:45 AM EST Office Visit [facility] Gastroenterology Clinic 10 [place] [address] Unknown, Unknown, Apple Junior PA-C [address] [place] [address] 07/31/2025 12:10 PM EST Office Visit [facility] [address] [place] [address] Marlo Durand DO [address] [place] [address] documented as of this encounter Results * CT ABDOMEN WITH CONTRAST (04/20/2019 2:46 PM EST) Anatomical Region Laterality Modality Abdomen, Abdominal Vasculature C omputed Tomography 04/20/2019 3:11 PM EST Impressions 04/20/2019 3:16 PM EST No pancreatic mass, pseudocyst, duct dilatation, or other significant interval change from 03/23/2017 apparent. Chronic hepatic steatosis. TOTAL CTDIvol: 32.00 mGy POS - [id number] Narrative 04/20/2019 3:16 PM EST COMPARISON: 03/23/2017 CT TECHNIQUE: After the administration of oral contrast, scanning is obtained through the adrenal beds 40 seconds following rapid intravenous contrast administration and from the dome of the liver to the iliac crests 90 seconds after contrast injection. Sagittal and coronal reformats generated. Automated exposure control utilized. Pancreas is stable in contour with some nodularity along the margins of the tail again noted but no discrete pancreatic mass, cyst, ductal is dictation, or parenchymal calcifications detected. No peripancreatic inflammatory changes are seen. There is chronic hepatic steatosis without focal mass, dominant cyst, bile duct dilatation, or perihepatic ascites noted to have arisen in the interim. Portal vein is grossly patent. No choledocholithiasis apparent. Spleen and adrenal glands are within normal limits in appearance. No renal mass, dominant cyst, or hydronephrosis demonstrated. Visualized opacified small bowel is nonopacified colonic loops are unremarkable in appearance, as is the appendix, without paracolic inflammatory change noted. No pathologically enlarged mesenteric or para-aortic lymph nodes demonstrated. Mild aortoiliac atherosclerotic plaquing. Celiac axis, SMA, and renal arteries appear to be patent. No bowel containing abdominal wall hernia. No focal infiltrate or pleural effusion demonstrated at the lung bases. No acute traumatic or destructive skeletal lesions apparent. Chronic lower thoracic spondylosis, disc space calcification at T10-11, and with Schmorl's node formation in the upper endplate of T11 now seen. Procedure Note Soha May MD - 04/20/2019 COMPARISON: 03/23/2017 CT TECHNIQUE: After the administration of oral contrast, scanning is obtainedthrough the adrenal beds 40 seconds following rapid intravenous contrastadministration and from the dome of the liver to the iliac crests 90seconds after contrast injection. Sagittal and coronal reformatsgenerated. Automated exposure control utilized. Pancreas is stable in contour with some nodularity along the margins ofthe tail again noted but no discrete pancreatic mass, cyst, ductal isdictation, or parenchymal calcifications detected. No peripancreaticinflammatory changes are seen. There is chronic hepatic steatosis without focal mass, dominant cyst, bileduct dilatation, or perihepatic ascites noted to have arisen in theinterim. Portal vein is grossly patent. No choledocholithiasisapparent. Spleen and adrenal glands are within normal limits in appearance. Norenal mass, dominant cyst, or hydronephrosis demonstrated. Visualized opacified small bowel is nonopacified colonic loops areunremarkable in appearance, as is the appendix, without paracolicinflammatory change noted. No pathologically enlarged mesenteric orpara-aortic lymph nodes demonstrated. Mild aortoiliac atheroscleroticplaquing. Celiac axis, SMA, and renal arteries appear to be patent. Nobowel containing abdominal wall hernia. No focal infiltrate or pleural effusion demonstrated at the lung bases.No acute traumatic or destructive skeletal lesions apparent. Chroniclower thoracic spondylosis, disc space calcification at T10-11, and withSchmorl's node formation in the upper endplate of T11 now seen. IMPRESSION: No pancreatic mass, pseudocyst, duct dilatation, or other significantinterval change from 03/23/2017 apparent. Chronic hepatic steatosis. TOTAL CTDIvol: 32.00 mGy POS - [id number] us Giovani Garnica MD IMG CT XSPECIALTY ORDERABLES Final Result documented in this encounter Visit Diagnoses Diagnosis Abdominal pain, LUQ- Primary Abdominal pain, LUQ documented in this encounter Additional Health Concerns Infection Onset Date Last Indicated Resolved Time Resp-Risk 05/15/2025 05/15/2025 05/15/2025 5:22 PM EST Influenza A 05/15/2025 05/15/2025 05/22/2025 7:07 PM EST documented as of this encounter Care Teams Urologic Surgeon Relationship Specialty Start Date End Date Harish Faria DO PCP - General 03/31/17 08/14/24 Harish Faria DO [address] [place] [address] PCP - General Internal Medicine 08/15/24 Britt Can MBBS [address] [place] [address] Primary Oncologist Medical Oncology 06/12/24 documented as of this encounter Additional Source Comments The information contained in this document represents components of the legal health record. It is not the complete legal health record.[facility]
--- OUTSIDE RECORDS SUMMARY | 2025-05-28 14:17 | XMS_ITS | Encounter Summary ---
Author Organization [facility] Address [address] [place] [address] [place] [address] Phone Care Team Providers Care Jar Capper Name Role Phone Harish Faria DO Primary Care Provider [phone] Britt Can MBBS Unavailable [phone] Harish Faria DO Primary Care Provider [phone] Encounter Details Date Type Department Care Team (Late st Contact Info) Description 05/02/2019 Procedure Pass [facility] Endoscopy Admitting Dept Virtual Department 30 [place] [address] Social History Tobacco Use Types Packs/Day Years [...] Critical Care Medicine 10 [facility] [place] [address] Emmanuel Garcia MD 10 [facility] 2nd [place] [address] [email or web address] 07/05/2025 8:45 AM EST Office Visit [facility] Gastroenterology Clinic 10 [place] [address] Unknown, Unknown, Apple Junior PA-C [address] [address] 07/31/2025 12:10 PM EST Office Visit [facility] 22 [place] [address] Marlo Durand, DO 22 [place] [address] documented as of this encounter Visit Diagnoses Not on filedocumented in this encounter Additional Health Concerns Infection Onset Date Last Indicated Resolved Time Resp-Risk 05/15/2025 05/15/2025 05/15/2025 5:22 PM EST Influenza A 05/15/2025 05/15/2025 05/22/2025 7:07 PM EST documented as of this encounter Care Teams Jar Capper Relationship Specialty Start Date End Date Harish Faria DO PCP - General 03/31/17 08/14/24 Harish Faria DO [address] [place] [address] PCP - General Internal Medicine 08/15/24 Britt Can MBBS [address] [place] [address] Primary Oncologist Medical Oncology 06/12/24 documented as of this encounter Additional Source Comments The information contained in this document represents components of the legal health record. It is not the complete legal health record.[facility]
--- OUTSIDE RECORDS SUMMARY | 2025-05-28 14:20 | XMS_ITS | Encounter Summary ---
Author Organization [facility] Address [address] [place] [address] [place] [address] Phone Care Team Providers Care Dirt Supervisor Name Role Phone Harish Faria DO Primary Care Provider [phone] Britt Can MBBS Unavailable [phone] Harish Faria DO Primary Care Provider [phone] Encounter Details Date Type Department Care Team (Late Contact Info) Description 03/26/2019 Transcribe Orders Virtual Department 30 [place] [address] Harish Faria DO 179 [facility] D [place], [place] [id number] [email or web address] RUQ pain (Primary Dx) Social History Tobacco Use Types [...] Pulmonary, Allergy and Critical Care Medicine 10 [place] [address] Emmanuel Garcia MD 10 [facility] 2nd [place] [address] [email or web address] 07/05/2025 8:45 AM EST Office Visit [facility] Gastroenterology Clinic 10 [place] [address] Unknown, Unknown, Apple Junior PA-C [address] [address] 07/31/2025 12:10 PM EST Office Visit [facility] 22 [place] [address] Marlo Durand DO 22 [place] [address] documented as of this encounter Visit Diagnoses Diagnosis RUQ pain- Primary Abdominal pain, right upper quadrant documented in this encounter Additional Health Concerns Infection Onset Date Last Indicated Resolved Time Resp-Risk 05/15/2025 05/15/2025 05/15/2025 5:22 PM EST Influenza A 05/15/2025 05/15/2025 05/22/2025 7:07 PM EST documented as of this encounter Care Teams Dirt Supervisor Relationship Specialty Start Date End Date Harish Faria DO PCP - General 03/31/17 08/14/24 Harish Faria DO 179 [place] [address] PCP - General Internal Medicine 08/15/24 Britt Can MBBS 30 [place] [address] (work) [email or web address] Primary Oncologist Medical Oncology 06/12/24 documented as of this encounter Additional Source Comments The information contained in this document represents components of the legal health record. It is not the complete legal health record.[facility]
--- OUTSIDE RECORDS SUMMARY | 2025-05-28 14:20 | XMS_ITS | Encounter Summary ---
Author Organization [facility] Address [address] [place] [address] [place] [address] Phone Care Team Providers Care Host/Hostess Head Name Role Phone Harish Faria DO Primary Care Provider [phone] Britt Can MBBS Unavailable [phone] Harish Faria DO Primary Care Provider [phone] Encounter Details Date Type Department Care Team (Late Contact Info) Description 03/14/2019 Transcribe Orders Virtual Department 30 [place] [address] Harish Faria DO 179 [facility] [place], [place] [id number] [email or web address] Left upper quadrant pain (Primary Dx) Social History Tobacco Use [...] Pulmonary, Allergy and Critical Care Medicine 10 [place] [address] Emmanuel Garcia MD 10 [facility] 2nd [place] [address] [email or web address] 07/05/2025 8:45 AM EST Office Visit [facility] Gastroenterology Clinic 10 [place] [address] Unknown, Unknown, Apple Junior PA-C [address] [address] 07/31/2025 12:10 PM EST Office Visit [facility] 22 [place] [address] Marlo Durand DO 22 [place] [address] documented as of this encounter Visit Diagnoses Diagnosis Left upper quadrant pain- Primary Abdominal pain, left upper quadrant documented in this encounter Additional Health Concerns Infection Onset Date Last Indicated Resolved Time Resp-Risk 05/15/2025 05/15/2025 05/15/2025 5:22 PM EST Influenza A 05/15/2025 05/15/2025 05/22/2025 7:07 PM EST documented as of this encounter Care Teams Host/Hostess Head Relationship Specialty Start Date End Date Harish Faria DO PCP - General 03/31/17 08/14/24 Harish Faria DO 179 [facility] [place] [address] PCP - General Internal Medicine 08/15/24 Britt Can MBBS 30 [place] [address] (work) [email or web address] Primary Oncologist Medical Oncology 06/12/24 documented as of this encounter Additional Source Comments The information contained in this document represents components of the legal health record. It is not the complete legal health record.[facility]
--- OUTSIDE RECORDS SUMMARY | 2025-05-28 14:20 | XMS_ITS | Encounter Summary ---
Author Organization [facility] Address [address] [place] [address] Drive [address] [place] [address] Phone Care Team Providers Care Cop Examiner Name Role Phone Harish Faria DO Primary Care Provider [phone] Britt Can MBBS Unavailable [phone] Harish Faria DO Primary Care Provider [phone] Encounter Details Date Type Department Care Team (Late st Contact Info) Description 01/02/2023 Procedure Pass [facility] [employer], Ct Scan - [facility] 30 [place] [address] Social History Tobacco Use Types Packs/Day Years [...] Pulmonary, Allergy and Critical Care Medicine 10 [facility] [place] [address] Emmanuel Garcia MD 10 [facility] 2nd [place] [address] [email or web address] 07/05/2025 8:45 AM EST Office Visit [facility] Gastroenterology Clinic 10 [place] [address] Unknown, Unknown, Apple Junior PA-C [address] [address] 07/31/2025 12:10 PM EST Office Visit [facility] [address] [place] [address] Marlo Durand DO [address] [place] [address] documented as of this encounter Visit Diagnoses Not on filedocumented in this encounter Additional Health Concerns Infection Onset Date Last Indicated Resolved Time Resp-Risk 05/15/2025 05/15/2025 05/15/2025 5:22 PM EST Influenza A 05/15/2025 05/15/2025 05/22/2025 7:07 PM EST documented as of this encounter Care Teams Cop Examiner Relationship Specialty Start Date End Date Harish Faria DO [email or web address] PCP - General 03/31/17 08/14/24 Harish Faria DO [address] [place] [address] [place] [address] [email or web address] PCP - General Internal Medicine 08/15/24 Britt Can MBBS [address] [place] [address] [email or web address] Primary Oncologist Medical Oncology 06/12/24 documented as of this encounter Additional Source Comments The information contained in this document represents components of the legal health record. It is not the complete legal health record.[facility]
--- OUTSIDE RECORDS SUMMARY | 2025-05-28 14:20 | XMS_ITS | Encounter Summary ---
Author Organization [facility] Address [address] [place] [address] [address] [place] [phone] Phone Care Team Providers Care Hospitality Intern Name Role Phone Harish Faria DO Primary Care Provider [phone] Britt Can MBBS Unavailable [phone] Harish Faria DO Primary Care Provider [phone] Encounter Details Date Type Department Care Team (Late st Contact Info) Description 12/31/2022 Procedure Pass [facility], Ct Scan - [facility] [address] [place] [address] Social History Tobacco Use Types Packs/Day Years [...] Date of Assessment Author No Risk Indicated 01/01/2023 1:00 AM EDT Moira Chong RN * [place] Suicide Severity Rating Scale (Screener/Recent Self-Report) Question Answer Date of Assessment Author 1. Wish to be (Past 1 Month) No 023 1:00 AM EDT Moira Chong RN 2. Non-Specific Active Suici mary Thoughts (Past 1 Month) No 01/01/2023 1:00 AM EDT Moira Chong RN 6. Suicidal Behavior (Lifetime) No 3 1:00 AM EDT Moira Chong RN documented as of this encounter Plan of Treatment Upcoming Encounters Date Type Department Care Team ([facility] st Contact Info) Description 06/19/2025 9:00 AM EST Office Visit [facility] Pulmonary, Allergy and Critical Care Medicine [address] [place] [phone] Emmanuel Garcia MD [address] [place] [address] [email or web address] 07/05/2025 8:45 AM EST Office Visit [facility] [address] [place] [phone] Unknown, Unknown, Apple Junior PA-C [address] [place] [phone] 07/31/2025 12:10 PM EST Office Visit [facility] Endocrinology [address] [place] [address] [place] [address] Marlo Durand DO [address] [place] [address] documented as of this encounter Visit Diagnoses Not on filedocumented in this encounter Additional Health Concerns Infection Onset Date Last Indicated Resolved Time Resp-Risk 05/15/2025 05/15/2025 05/15/2025 5:22 PM EST Influenza A 05/15/2025 05/15/2025 05/22/2025 7:07 PM EST documented as of this encounter Care Teams Hospitality Intern Relationship Specialty Start Date End Date Harish Faria DO PCP - General 03/31/17 08/14/24 Harish Faria DO [address] [place] [address] [email or web address] PCP - General Internal Medicine 08/15/24 Britt Can MBBS [address] [place] [address] Primary Oncologist Medical Oncology 06/12/24 documented as of this encounter Additional Source Comments The information contained in this document represents components of the legal health record. It is not the complete legal health record.[facility]
--- OUTSIDE RECORDS SUMMARY | 2025-05-28 14:21 | XMS_ITS | Encounter Summary ---
Author Organization [facility] Address [address] [place] [address] Phone Care Team Providers Care Assistant Project Manager Name Role Phone Britt Can ARTIS Unavailable [phone] Harish Faria DO Primary Care Provider Encounter Details Date Type Department Care Team (Late st Contact Info) Description 09/20/2024 Procedure Pass [facility], [facility] [address] [place] [address] Social History Tobacco Use Types Packs/Day Years [...] is your housing situation today? I have jde sing 09/20/2024 How many times have you [...] Date of Assessment Author No Risk Indicated 09/20/2024 9:42 AM EDT Roseann Osei RN * [place] Suicide Severity Rating Scale (Screener/Recent Self-Report) Question Answer Date of Assessment Author 1. Wish to be (Past 1 Month) No 025 9:42 AM EDT Roseann Osei, CELESTE 2. Non-Specific Active Suici mary Thoughts (Past 1 Month) No 09/20/2024 9:42 AM EDT Roseann Osei, RN 6. Suicidal Behavior (Lifetime) No 9:42 AM EDT Roseann Osei, RN documented as of this encounter Plan of Treatment Upcoming Encounters Date Type Department Care Team (Late st Contact Info) Description 06/19/2025 9:00 AM EST Office Visit [facility] Pulmonary, Allergy and Critical Care Medicine 10 [facility] [place] [address] Emmanuel Garcia MD 10 [facility] 2nd [place] [address] [email or web address] 07/05/2025 8:45 AM EST Office Visit [facility] [address] [place] [address] Unknown, Unknown, MD [place], RUSSELL Chiu [address] [address] 07/31/2025 12:10 PM EST Office Visit [facility] Endocrinology [address] [place] [phone] Marlo Durand DO [address] [place] [address] documented as of this encounter Visit Diagnoses Not on filedocumented in this encounter Additional Health Concerns Infection Onset Date Last Indicated Resolved Time Resp-Risk 05/15/2025 05/15/2025 05/15/2025 5:22 PM EST Influenza A 05/15/2025 05/15/2025 05/22/2025 7:07 PM EST documented as of this encounter Care Teams Assistant Project Manager Relationship Specialty Start Date End Date Harish Faria DO [address] [place] [phone] PCP - General Internal Medicine 08/15/24 Britt Can MBBS [address] [place] [phone] Primary Oncologist Medical Oncology 06/12/24 documented as of this encounter Additional Source Comments The information contained in this document represents components of the legal health record. It is not the complete legal health record.[facility]
--- OUTSIDE RECORDS SUMMARY | 2025-05-28 14:21 | XMS_ITS | Encounter Summary ---
Author Organization [facility] Address [address] [place] [phone] Phone Care Team Providers Care Disassembler Product Name Role Phone Britt Can ARTIS Unavailable [phone] Harish Faria DO Primary Care Provider [phone] Encounter Details Date Type Department Care Team (Late st Contact Info) Description 08/15/2024 Ancillary Orders [facility], X-Ray - [facility] [address] [place] [address] Selma Ryder PA 6 [facility] [place] [address] Acute abdomen (Primary Dx) Social History Tobacco Use Types [...] Pulmonary, Allergy and Critical Care Medicine [address] [place] [address] Emmanuel Garcia MD [address] [place] [phone] [email or web address] 07/05/2025 8:45 AM EST Office Visit [facility] [address] [place] [address] Unknown, Unknown, Apple Junior PA-C [address] [place] [phone] 07/31/2025 12:10 PM EST Office Visit [facility]inology [address] [place] [address] Marlo Durand DO [address] [place] [address] documented as of this encounter Visit Diagnoses Diagnosis Acute abdomen- Primary Abdominal pain, unspecified site documented in this encounter Additional Health Concerns Infection Onset Date Last Indicated Resolved Time Resp-Risk 05/15/2025 05/15/2025 05/15/2025 5:22 PM EST Influenza A 05/15/2025 05/15/2025 05/22/2025 7:07 PM EST documented as of this encounter Care Teams Disassembler Product Relationship Specialty Start Date End Date LidaHarish rosasDO [address] [place] [address] [email or web address] PCP - General Internal Medicine 08/15/24 Britt Can MBBS [address] [place] [address] [email or web address] Primary Oncologist Medical Oncology 06/12/24 documented as of this encounter Additional Source Comments The information contained in this document represents components of the legal health record. It is not the complete legal health record.[facility]
--- OUTSIDE RECORDS SUMMARY | 2025-05-28 14:21 | XMS_ITS | Clinical Summary ---
Author Organization [facility] Address [address] [place] [address] Drive [address] [place] [id number] Phone Care Team Providers Care Banquet Director Name Role Phone Moodyyeimy Britt ARTIS Unavailable [phone] Libby García DO Primary Care Provider [phone] Allergies Active Allergy Reactions Criticality Noted Date Comments Canagliflozin Unknown 10/16/2014 Other reaction(s): skin burning Other Reaction(s): Sunburn Invokana Sitagliptin 10/16/2014 Other reaction(s): skin burning Medications alpha lipoic acid 600 mg Cap Take 1,200 mg by mouth daily. Active albuterol 90 mcg/actuation inhaler Inhale 2 puffs into the lungs every 4 (four) hours. 1 Inhaler 018 Active POTASSIUM ORAL Take 99 mg by mouth daily. Active losartan (COZAAR) 100 MG tabletIndication s:Benign essential hypertension TAKE 1 TABLET BY MOUTH EVERY DAY 90 tablet 3 022 Active atorvastatin (LIPITOR) 80 MG tablet Take 80 mg by mouth daily. 023 Active rOPINIRole (REQUIP) 0.5 MG tablet TAKE 1 TABLET BY MOUTH EVERY DAY AT DINNER FOR 30 DAYS 024 Active aspirin 325 MG tablet Take 325 mg by mouth daily. 024 Active metFORMIN (GLUCOPHAGE) 850 MG tablet Take 1 tablet (850 mg total) by mouth 2 (two) times a day with meals. 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 2 each 025 Active TRESIBA FLEXTOUCH U-200 200 unit/mL (3 mL) InPn injection penIndications:T ype 2 diabetes mellitus with hyperglycemia, with long-term current use of insulin Inject 160 Units under the skin daily. 75 mL 025 Active insulin lispro U-200 (HUMALOG KWIKPEN) 200 unit/mL (3 mL) InPn subcutaneous penIndications:T ype 2 diabetes mellitus with hyperglycemia, with long-term current use of insulin Inject 30 Units under the skin 3 (three) times a day before meals. 45 mL 025 Active ferrous sulfate 325 mg (65 mg gambell iron) tablet Take 325 mg by mouth daily with breakfast. Active omeprazole (PRILOSEC) 20 MG tablet Take 20 mg by mouth daily. Active furosemide (LASIX) 40 MG tablet Take 40 mg by mouth daily. 024 2024 Discontinued tamsulosin (FLOMAX) 0.4 mg Cap Take 0.8 mg by mouth nightly at bedtime. 024 2024 Discontinued apixaban (ELIQUIS) 5 mg tablet Take 1 tablet (5 mg total) by mouth 2 (two) times a day. 60 tablet 025 2024 Discontinued amoxicillin (AMOXIL) 875 MG tablet TAKE 1 TABLET BY MOUTH EVERY 12 HOURS DIRECTED FOR 10 DAYS 2024 Discontinued amoxicillin-clav ulanate (AUGMENTIN) 875-125 mg per tablet Take 1 tablet by mouth every 12 (twelve) hours. 2024 Discontinued azithromycin (ZITHROMAX) 250 MG tablet TAKE 2 TABLETS BY MOUTH TODAY, THEN TAKE 1 TABLET DAILY FOR 4 DAYS DIRECTED 025 2024 Discontinued tirzepatide (MOUNJARO) 2.5 mg/0.5 mL PnIj subcutaneous penIndications:T ype 2 diabetes mellitus with hyperglycemia, with long-term current use of insulin Inject 0.5 mL (2.5 mg total) under the skin every 7 days. 2 mL 3 025 2024 Discontinued nystatin (MYCOSTATIN) 100,000 units/mL suspension Swish and swallow 5 mL (500,000 Units total) 4 (four) times a day for 25 doses. 125 mL 025 2024 oseltamivir (TAMIFLU) 75 mg capsule Take 1 capsule (75 mg total) by mouth 2 (two) times a day for 4 days. 8 capsule 025 2024 Active Problems Problem Noted Date Diagnosed Date Facial droop 05/15/2025 Assessment & Plan (05/16/2025 9:49 AM EST): Patient presented from PCP with reports of facial drooping and drooling that started this morning. Severe headache with white out of peripheral vision on the way to ED, more consistent with migraine with aura. Reports 2 weeks of bilat shoulder heaviness and dizziness associated with unsteady gait and BLE weakness, denies falls and LOC. Has baseline Bilat feet neuropathy, no other paresthesias In the ED CT head with no acute ischemic/hemorrhagic changes. CTA head/neck with no flow limiting stenosis or LVO. - BMP significant for pseudohyponatremia due to hyperglycemia, - Lactate elevated at 3.0 - Chest x-ray, TSH, CBC, CRP unremarkable - ESR elevated at 32 - A1c 10.8 - UA positive for 3+ glucose otherwise unremarkable Pt has Hx of CVA and TIA discussed below. Also found to be Flu A positive during workup Etiology maybe TIA vs recrudescence due to viral illness versus CVA Plan: - Follow-up brain MRI with/ without contrast - will hold on Transthoracic Echo (TTE) w/bubble w/contrast pending results of MRI - Cont home aspirin - Will cont with home atorvastatin 80 mg - Admit to telemetry. If AFIB found will initiate anticoagulant. If no Afib is found, consider 30 day holter monitor on DC. He adamantly denies AFIB Hx - Hold losartan -Allow for permissive HTN with SBP goal <220 for the first 24h; After 24-48h sBP goal < 180; after 48h from onset of symptoms sBP goal < 140; SBP < 160 on discharge; In outpatient setting SBP goal < 120-130 as tolerated - No need for PT/ OT consults as patient currently has no physical deficits - no need for Follow up VESSEL SCRAPPER consult. Patient passed nurse swallow eval and has no deficts - Will need neurology and PCP follow up to ensure stroke risk reduction is optimized and risk factor reduction of LDL <70, A1c control, and long-term outpatient BP goal <130/<80 are all being addressed Influenza A 05/15/2025 Assessment & Plan (05/15/2025 7:39 PM EST): Found during work up as above. 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 Lipitor 80 mg daily (already on ) Discussed risk of uncontrolled DM at length with pt as well as afib both increase risk for stroke dramatically. Iron deficiency anemia 06/29/2024 Assessment & Plan (05/15/2025 7:22 PM EST): Stable. Admitted with a hemoglobin of 10.0 Chronic fatigue 06/22/2024 Absolute anemia 06/22/2024 Assessment & Plan (05/15/2025 6:21 PM EST): Stable. Admitted with hemoglobin of 10.0 Assessment & Plan (12/12/2024 9:16 AM EDT): 59-year-old male with a history of iron deficiency anemia, presenting for follow up management recommendations. He has chronic fatigue which is now improved post Feraheme 07/2024. Hw has a history of chronic abdominal pain with prior pancreatitis. Colonoscopy June 2023 was negative other than internal hemorrhoids. He follows intermittently with GI services. At this time I have recommended follow up with primary care. There has been no recurrence of iron deficiency. He has been advised to have a repeat CBC and iron studies with primary care in 6 months. He can follow- up with hematology on a as needed basis if any new problems arise. He should follow up with GI services, Pulmonary and Cardiology services. Primary care to discuss uncontrolled HTN. Discussed the importance of compliance with patient. No scheduled appt to hematology. All questions answered. Assessment & Plan (09/17/2024 4:32 PM EDT): 59-year-old male with a history of iron deficiency anemia, presenting for follow up management recommendations. He has chronic fatigue which is now improved post Feraheme 07/2024. Hw has a history of chronic abdominal pain with prior pancreatitis. Colonoscopy June 2023 was negative other than internal hemorrhoids. He follows intermittently with GI services. At this time I have recommended follow up in 3 months with rpt labs to document no return of iron deficiency. He should follow up with GI services, Pulmonary and Cardiology services. Primary care to discuss uncontrolled HTN. Discussed the importance of compliance with patient. All questions answered. Assessment & Plan (06/29/2024 3:13 PM EST): 59-year-old male with a history of iron deficiency anemia, presenting for management recommendations. He has chronic fatigue which is likely multifactorial in light of his inability to use CPAP effectively and has a history of chronic abdominal pain with prior pancreatitis. Colonoscopy June 2023 was negative other than internal hemorrhoids. He follows intermittently with GI services. At this time I have recommended IV iron since no significant improvement on oral iron. He will follow up in 2-3 months with rpt labs to document resolution of iron deficiency. He should follow up with GI services and Cardiology services. Restart all meds immediately. ER if chest pain, SOB. All questions answered. Assessment & Plan (06/22/2024 4:45 PM EST): 89-year-old male with a history of iron deficiency anemia, presenting for management recommendations. He has chronic fatigue which is likely multifactorial in light of his inability to use CPAP effectively and has a history of chronic abdominal pain with prior pancreatitis. Colonoscopy June 2023 was negative other than internal hemorrhoids. He follows intermittently with GI services. At this time I have indicated to him we will repeat lab work and follow-up next week to see if persistent iron deficiency. I have recommended consideration of IV iron if no improvement on oral iron. There is also the option of CT imaging and repeat GI evaluation, in light of his fatigue and intermittent abdominal pain. He we will discuss that further after his blood work. All questions answered. Decreased libido 01/27/2024 Assessment & Plan (12/21/2024 11:59 AM EDT): His free testosterone levels in the normal reference range gonadotropins and prolactin in the reference range. He does not require testosterone therapy. Total testosterone was low but this may be due to decreased SHBG due to obesity. I would not work this up further. Assessment & Plan (01/27/2024 10:06 AM EDT): The patient had orchiectomy on the right. Was found to have low testosterone postsurgically. Use testosterone for approximately 8 to 9 years. Then for what ever reason it was stopped. He had some issues with her insurance and his primary care physician who refused to fill the prescription. The patient complains of decreased libido, erectile dysfunction. Has used phosphodiesterase in the past and has not been effective. I did inform him that testosterone may help with libido but not necessarily with erectile dysfunction. Will do full endocrine workup including fasting testosterone levels, gonadotropins and prolactin level. If the patient is found to be deficient he will need to be placed on testosterone we will have to monitor lipid panel hemoglobin, hematocrit level and of course testosterone levels and PSA levels so this has been requested as a baseline. He has no history of coronary artery disease or prostate cancer. Screening for prostate cancer 01/27/2024 Acute recurrent pancreatitis 02/10/2023 Acute pancreatitis without infection or necrosis 01/01/2023 Assessment & Plan (02/10/2023 1:18 PM EDT): Patient was here for pancreatitis just last month, this was attributed to his GLP-1 agonist and fatty meal. There are few minor episodes that resolved spontaneously prior to this Denies excessive alcohol use although was drinking beer yesterday, denies new meds, Ate hamburgers and drink beer last night despite having felt the onset of symptoms. Presents with a lipase of 1450, alk phos is 126 otherwise LFTs are normal, creatinine 0.7, white blood cell count 9.35 and hemoglobin 12.9 GI was called from the emergency dept Recommends n.p.o., fluids, analgesia, right upper quadrant ultrasound to start and consider MRCP Assessment & Plan (01/04/2023 9:40 AM EDT): Most likely due to his GLP1 agonist. Possibly exacerbated by biliary disease caused by the same in conjunction with chicken wings. Patient reports abdominal pain is about the same as yesterday, though improved from evening. He reports pain being 9 out of 10, though appears comfortable in bed without any signs of tenderness on palpation of abdomen. Transitioning to predominantly oral pain med regimen. Regular diet, low-fat Decreased 2 to 1 mg IV push Dilaudid every 3 as needed for severe pain refractory to oxycodone 10 mg of oxycodone every 4 hours for severe pain 400 mg ibuprofen as needed for moderate pain Scheduled Tylenol for mild pain Warm compress therapy MiraLAX, Colace daily to encourage bowel movement Discontinue IV fluids Repeated CT abdomen and pelvis again shows peripancreatic stranding secondary to pancreatitis, similar to previous without necrosis or other acute pathology. Noted fatty liver. No ETOH, Cigarette smoking, Trigs WNL, IgG4 level appropriate GI consult appreciated, will need outpatient follow-up CBC, CBP, CRP tomorrow Shortness of breath 12/28/2022 Assessment & Plan (03/23/2023 10:08 AM EDT): Shortness of breath and chest pressure with minimal exertion associated with significant lightheadedness. He has known hypertrophic cardiomyopathy with mild LVOT obstruction at rest which increases to moderate with exertion (based on stress echo from 12/24/2021). This could certainly be contributing to exertional shortness of breath. He was last seen by cardiology in [place] in nd was subsequently seen in 11/2022 by [facility] cardiology who recommended right and left heart catheterization (to exclude hemodynamically significant CAD and better understand his intracardiac filling pressure). Chest x-ray from 10/2022 was clear, unremarkable. His symptoms (namely, daily episodes of lightheadedness with minimal exertion) are quite concerning for symptomatic LV outflow tract obstruction. This is actively being worked up. He has a history of secondhand smoke exposure (during childhood) and other exposures while serving in [employer]. PFTs from 02/2023 demonstrated mild restriction with an associated mild diffusion impairment, both of which are likely secondary to body habitus/obesity. Lastly, there could be a contribution from related deconditioning. He underwent LHC/RHC in 02/2023 at [facility] with findings of CAD not requiring intervention, evidence of diastolic dysfunction and possible mixed valvular and subvalvular LVOT obstruction. Additionally, he had an echo performed in 11/2022 which demonstrated moderate aortic stenosis (new from prior). He continues on Lasix which has been helping his dyspnea. His hypertension remains poorly controlled. I suspect his cardiac issues (possible LVOT obstruction), aortic stenosis, and diastolic dysfunction are the major drivers of his dyspnea, in addition to contributions from obesity/deconditioning. -Recommend ongoing cardiology evaluation/optimization -Encouraged ongoing efforts at weight loss in addition to exercise as tolerated -Due to low suspicion for interstitial lung disease and PFT abnormalities likely representing the imprint of body habitus, will defer pursuing chest CT for now Assessment & Plan (02/25/2023 8:44 AM EDT): Significant shortness of breath and chest pressure with minimal exertion associated with significant lightheadedness. He has known hypertrophic cardiomyopathy with mild LVOT obstruction at rest which increases to moderate with exertion (based on stress echo from 12/24/2021). This could certainly be contributing to exertional shortness of breath. He was last seen by cardiology in [place] in 03/2022 and was subsequently seen in 11/2022 by [facility] cardiology who recommended right and left heart catheterization (to exclude hemodynamically significant CAD and better understand his intracardiac filling pressure). Chest x-ray from 10/2022 was clear, unremarkable. His symptoms (namely, daily episodes of lightheadedness with minimal exertion) are quite concerning for symptomatic LV outflow tract obstruction. This is actively being worked up. He has a history of secondhand smoke exposure (during childhood) and other exposures while serving in [place], so we will obtain PFTs to evaluate for underlying pulmonary disease. Lastly, there could be a contribution from obesity and deconditioning. He was scheduled to have right and left heart catheterization at [facility] after our last visit, but this was delayed due to hospitalizations for acute pancreatitis. He had cardiac catheterization recently and per patient, had no significant obstructive coronary disease with the remainder of results unknown. His hypertension remains poorly controlled. -Obtain cardiac catheterization records from [facility] -Patient has upcoming follow-up with Dr. Sims of [facility] cardiology -Pursue PFTs (this was previously deferred due to concern of increased intrathoracic pressure as result of study maneuvers potentially affecting his LVOT obstruction; though, this would appear to be low risk at present, as he tolerated having pancreatitis with SIRS x2 recently) -Based on cardiology and pulmonary evaluation, can discuss whether CT chest imaging might be indicated in the future Assessment & Plan (02/10/2023 1:15 PM EDT): Longstanding history of dyspnea on exertion over a year in duration, has been work-up for this as an outpatient and follows with cardiology, no hypoxia in the emergency room and patient does not report any changes or chest pain, has history of LVOT obstruction seen on a previous stress echocardiogram Patient has a loud murmur on exam, tells me that he is due for cardiac catheterization and possibly subsequent procedure on Tuesday at [facility]. He is under the care of Dr. Sims We will continue his cardiac meds Assessment & Plan (01/04/2023 9:56 AM EDT): Longstanding issue of dyspnea on exertion. Has had stress echoes in the past showing mild LVOT that progresses to moderate with exertion, EF 65%. Patient required nasal cannula overnight, currently on 2.5 L and satting at 93%. Suspect mild degree of volume overload with IV fluid treatment for pancreatitis. CXR this morning shows low lung volumes without acute cardiopulmonary disease, 01/04. -Plan was for diagnostic heart catheterization on 01/03/2023 which will need to be rescheduled -Incentive spirometer -Single 20 mg IV push Lasix -Reduce IV pain regimen -Encourage deep breathing -Oxygen as needed to maintain >92% Assessment & Plan (12/28/2022 2:11 PM EDT): Significant shortness of breath and chest pressure with minimal exertion associated with significant lightheadedness. He has known hypertrophic cardiomyopathy with mild LVOT obstruction at rest which increases to moderate with exertion (based on stress echo from 12/24/2021). This could certainly be contributing to exertional shortness of breath. He was last seen by cardiology in [place] in 03/2022 and was subsequently seen in 11/2022 by [facility] cardiology who recommended right and left heart catheterization (to exclude hemodynamically significant CAD and better understand his intracardiac filling pressure. Chest x-ray from 10/2022 was clear, unremarkable. His symptoms (namely, daily episodes of lightheadedness with minimal exertion) are quite concerning for symptomatic LV outflow tract obstruction. This is actively being worked up. He has a history of secondhand smoke exposure (during childhood) and other exposures while serving in [employer], so we will obtain PFTs to evaluate for underlying pulmonary disease. Lastly, there could be a contribution from obesity and deconditioning. -Ongoing cardiology evaluation of cardiovascular disease (with plan for right and left heart catheterization this coming Tuesday at [facility]) -We discussed obtaining PFTs once this is deemed OK per composite layup worker Dr. Amador Sims at [facility] (presently, I am concerned about patient experiencing increased intrathoracic pressure as a result of study maneuvers) -Based on cardiology and pulmonary evaluation, can discuss whether CT chest imaging might be indicated in the future Sleep apnea 12/28/2022 Assessment & Plan (03/21/2023 10:09 AM EDT): Per patient, history of severe MARY but could not tolerate CPAP in the past. We again discussed that untreated severe sleep apnea could have profound deleterious cardiac effects, particularly in the setting of known LVOT obstruction. He was amenable to being referred to [facility] sleep medicine for discussion of CPAP therapy. -A referral was previously provided to establish care with Dr. Garcia of [facility] sleep medicine and this has been scheduled for 05/12/2023 Assessment & Plan (02/25/2023 8:41 AM EDT): Per patient, history of severe MARY but could not tolerate CPAP in the past. We again discussed that untreated severe sleep apnea could have profound deleterious cardiac effects, particularly in the setting of known LVOT obstruction. He was amenable to being referred to [facility] sleep medicine for discussion of CPAP therapy. -A referral was previously provided to establish care with Dr. Garcia of [facility] sleep medicine and patient was encouraged to schedule this appointment Assessment & Plan (12/28/2022 2:11 PM EDT): Per patient, history of severe MARY but could not tolerate CPAP in the past. We discussed that untreated severe sleep apnea could have profound deleterious cardiac effects, particularly in the setting of known LVOT obstruction. He was amenable to being referred to [facility] sleep medicine for discussion of CPAP therapy. -Referral provided to establish care with Dr. Garcia of [facility] sleep medicine Left ventricular outflow tract obstruction 12/28 Chronic rhinitis 12/28/2022 Assessment & Plan (03/21/2023 10:10 AM EDT): Year-round symptoms of sinus congestion and post-nasal drip. -Continue Flonase 1 spray each nostril twice daily, Xyzal Assessment & Plan (02/25/2023 8:42 AM EDT): Year-round symptoms of sinus congestion and post-nasal drip. -Start Flonase 1 spray each nostril twice daily and Xyzal Assessment & Plan (12/28/2022 2:11 PM EDT): Year-round symptom of sinus congestion. Can discuss in more detail at his next visit. PVC's (premature ventricular contractions) 11/09 Obesity (BMI 30.0-34.9) 05/12/2018 Assessment & Plan (07/03/2021 9:12 AM EST): His weight remains stable despite discontinuinge Saxenda. Advised to monitor diet. Assessment & Plan (04/03/2021 9:15 AM EDT): Unfortunately he has gained 5 pounds. Unfortunately he has abdominal pain with the Saxenda we have to decrease the dose to 1.8 mg. Assessment & Plan (10/02/2020 9:04 AM EDT): Unfortunately he continues to gain weight. Last visit he gained 9 pounds this time around he gained 4 pounds. I advised him to monitor his diet and exercise regularly. Assessment & Plan (07/03/2020 9:02 AM EST): He is gained 9 pounds since last visit may be due to increase insulin use. Assessment & Plan (04/02/2020 9:17 AM EDT): His weight has remained stable we will continue current management with Saxenda. Assessment & Plan (01/03/2020 9:45 AM EDT): Unfortunately he gained 3 pounds. This is spite the fact that he finds it difficult to eat because of cholecystitis I suspect. In any case we will continue Saxenda therapy. At the maximum dose. Assessment & Plan (10/17/2019 4:18 PM EDT): The patient has gained 5 pounds. He states that he is actually eating less during the pandemic. He states that he is doing yard work. At this point will just continue Saxenda at the current dose. Assessment & Plan (03/09/2019 8:53 AM EDT): He has lost 3 pounds since his last visit he should continue Saxenda. Assessment & Plan (09/08/2018 8:57 AM EDT): Unfortunately patient has gained 11 pounds. He is eating because of boredom. He states that he is not hungry. He does not drink water. He suggested giving him a medication to increase his water intake and I felt that he just really needs to be more responsible to himself and eat healthy go to bed on a timely basis and make an effort to drink more water. Assessment & Plan (05/12/2018 9:26 AM EST): The patient is obese, he is monitoring his diet he has seen dietitians in the past he knows what to eat. He is exercising although he needs to roll picker his exercise activity. At this point I will prescribe Saxenda 0.6 mg and he will increase the dose on a weekly basis by 0.6 mg. He does not have any contraindications to this medication. Hyperlipidemia LDL goal <100 07/23/2017 Assessment & Plan (05/15/2025 7:22 PM EST): Lipid LDL 44; triglycerides elevated at 468 (he was >1900 in 09/2024); Alk Phos 137 Patient also has a history of HOPPER. Plan: - Continue aspirin and statin as above Assessment & Plan (12/21/2024 11:51 AM EDT): His last LDL was 59 mg/dL and this was fine in the past but now he has had a stroke and his LDL should be less than 50 mg/dL. I think that I will repeat the lipid panel before making any changes. Assessment & Plan (09/20/2024 2:23 PM EDT): Continue high dose lipitor Assessment & Plan (09/20/2023 10:36 AM EDT): Controlled. LDL 96 mg/dL continue atorvastatin 80. Assessment & Plan (05/26/2023 9:28 AM EST): Controlled. LDL 96 mg/dL continue current regimen with atorvastatin 80. Assessment & Plan (02/24/2023 9:36 AM EDT): His last lipid panel showed LDL of 99 mg/dL which is controlled. So he should continue atorvastatin 80 mg but he needs to repeat a lipid panel because he is past due. Assessment & Plan (02/10/2023 12:38 PM EDT): Continue statin Assessment & Plan (01/20/2022 9:14 AM EDT): Controlled. LDL 93 mg/dL on atorvastatin 40 mg no changes. Assessment & Plan (10/06/2021 9:18 AM EDT): Based on last lipid panel his LDL is controlled at 39 mg/dL on atorvastatin 40 mg no need to make any changes. Assessment & Plan (07/03/2021 8:59 AM EST): He has not repeated lipid panel but his last LDL 10/22/2020 was 39 mg/dL he should continue atorvastatin 40 mg daily. Assessment & Plan (04/03/2021 8:46 AM EDT): Based on his last lipid panel his LDL was 39 mg/dL he was doing well. He should continue atorvastatin 40 mg. No changes requested repeat lipid panel for the follow-up visit. Assessment & Plan (10/02/2020 8:47 AM EDT): Good control. LDL 39 mg/dL on atorvastatin 40 mg no changes. Assessment & Plan (07/03/2020 9:02 AM EST): Controlled based on last lipid panel his LDL was 39 mg/dL. Continue atorvastatin we will request repeat lipid panel for the follow-up visit. Assessment & Plan (01/03/2020 9:46 AM EDT): Trolled LDL 39 mg/dL on atorvastatin 40 mg continue current regimen. Assessment & Plan (10/17/2019 4:19 PM EDT): Controlled. His LDL levels range from 45 to 50 mg/dL. He should continue atorvastatin no changes. Assessment & Plan (03/09/2019 8:53 AM EDT): Originally we do not have an LDL because his triglycerides were too high today I requested a lipid panel and direct LDL. He has mild elevations in transaminases. Should continue atorvastatin 40 mg daily. Assessment & Plan (08/25/2018 2:57 PM EDT): -Lipid panel from January showing good good control -Continue current statin LVH (left ventricular hypertrophy) 07/23/2017 Essential hypertension 07/23/2017 Assessment & Plan (05/15/2025 7:22 PM EST): Controlled. Losartan on hold for permissive hypertension as above Assessment & Plan (09/20/2024 2:23 PM EDT): Stroke now >48 hrs ago Will restart his home BP meds now. Assessment & Plan (02/10/2023 12:47 PM EDT): Will continue patient's metoprolol Cozaar and diltiazem, watch creatinine closely, holding furosemide presently Assessment & Plan (01/04/2023 9:35 AM EDT): Patient has been hypertensive throughout his stay with systolic blood pressure ranging from 140-199 in the setting of acute pancreatitis. Blood pressure remains poorly controlled despite adequate pain control. Continue treatment for pancreatitis Continue home metoprolol 25 mg daily Increase diltiazem 180 to 240mg daily Continue losartan 100 mg daily Continue low-sodium diet IVP Hydralazine 5 mg every 6 as needed for systolic blood pressure greater than 170 Assessment & Plan (11/11/2021 10:11 AM EDT): BP uncontrolled. Increasing metoprolol to 50 mg X 2 daily. Assessment & Plan (08/25/2018 2:53 PM EDT): -Pressure well controlled in the office today -New current blood pressure medications, amlodipine 5 mg daily, losartan 100 mg daily, metoprolol 50 mg daily -Instructed to continue to monitor his own blood pressure at home and to call the office if the systolic is persistently over 130 -Just the importance of taking medications daily Uncontrolled type 2 diabetes mellitus with hyper glycemia 07/23/2017 Overview (01/01/2023): Without nephropathy, neuropathy or retinopathy. On high doses of insulin. Assessment & Plan (05/15/2025 7:22 PM EST): Dr. Durand as an outpatient Home meds include: Metformin 850 twice daily, Tresiba 160 units daily (sometimes takes in divided doses), Lantus 30 units 3 times daily with meals on admission: A1c 14.8, TSH 1.64, Hyponatremic at 122 (Corrected sodium 138), Glu 771 on BMP, Lactic 3.0. - S/P 20 units Lispro SQ x1 and 1L NS bolus in the ED - presents with oral thrush, MM dry - UA positive for 3+ glucose otherwise unremarkable Plan: - 2199 BMP - another 1L NS bolus (this will be 2nd bolus) - Maintenance NS 100/hr overnight - Lantus 80 BID - 10 units nutritional lispro with meals TID - Mod scale lispro - nystatin S/S Assessment & Plan (12/21/2024 11:58 AM EDT): Uncontrolled. Hemoglobin A1c 13.2. Will resume Tresiba 160 units Humalog U200 30 units 3 times daily and will prescribe Mounjaro 2.5 mg. In the past he has not tolerated GLP-1 agonist. But we can try the combination GIP GLP medication which has less adverse effects. I told him we will start with the 2.5 mg but by the third injection if he is tolerating we can increase it to 5 mg and we can increase it every month until we reach 15 mg. He will return for follow-up in 3 months time. Assessment & Plan (09/20/2024 2:23 PM EDT): Terribly controlled DM at pt request, refusing insulin due to weight gain Querry if he could be a candidate for SGLT2 or weighloss meds as means of improving DM. For now hold metformin 850 BID (increase at sc) Start POC Q 4hrs, insulin here lantus 10 BID and SSI and meal time ordered for once he passes swallow. Assessment & Plan (09/20/2023 10:36 AM EDT): Uncontrolled. Hemoglobin A1c 11.0%. He is now on steroids needs more prandial insulin. He is concerned about developing hypoglycemia and with good reason because his fasting glucose sometimes near the 70s range so I asked him to decrease the Tresiba to 140 and increase the Humalog U200 to 40 units twice a day with meals. Apparently he has 2 meals a day. Repeat hemoglobin A1c in 3 months time. Assessment & Plan (05/26/2023 9:27 AM EST): Uncontrolled. Hemoglobin A1c 9.5% may be falsely low but is an improvement compared to the last visit. So we are not can make any changes now. I asked the patient and his to give me more glycemic levels at least 1 week prior to the visit to document the food intake the times he is doing it to document if he is using the Humalog U200 prior to the meal after all this can be very helpful in finding out how to best help control the glucose levels and to the follow-up Humalog correction scale. But it has to be intense management for least 1 week. I am not can make any changes to his regimen. Assessment & Plan (02/24/2023 9:28 AM EDT): Controlled. Hemoglobin A1c is 11.0% but this is falsely low because the patient has anemia. He is not able to tolerate oral medications we have tried this in the past now he cannot use GLP-1 agonist because is contraindicated with pancreatitis. I am concerned that he is going to have worsening pancreatitis if we do not control his glucose levels. Right now his glucose levels are elevated throughout the day. The Tresiba is fine he can continue 160 units but he needs to bolus for his coffee with creamer and honey. He needs to try to have breakfast and lunch because it is unhealthy to not eat. Furthermore it is possible that he could develop hypoglycemia although I am not seen this because he is constantly drinking coffee throughout the day. And if he wants to do this then he needs to bolus very small amounts may be 10 units of Humalog U200 and see if that is effective. I discussed with him insulin pumps and devices to administer insulin so he does not have to do injections but he will not wear them. He only wants to do the injections and this is fine but again he has to do them. So consider when he is drinking either tea or coffee with the creamer to administer 10 units with the drinks if he is not going to eat. He needs to see how his glucose levels response 2 hours after insulin administration and if his glucose levels are above 180 mg/dL means that he is going to need to increase the amount of Humalog. But I do not want him to overdo it with the Humalog because then that will result in hypoglycemia. Assessment & Plan (02/10/2023 12:51 PM EDT): Will hold patient's metformin, normally on Tresiba now and we will give him basal insulin as formulary substitution along with sliding scale, he will be n.p.o., conservative dosing, he presents with hyperglycemia, glucose in the 220s I will start with 50 units of glargine nightly as per last admission Assessment & Plan (01/04/2023 9:36 AM EDT): Patient is insulin-dependent type 2. Blood glucose is improving, now upper 100s. Increase Lantus to 70 units daily every morning Continue lispro sliding scale We will hold metformin in the setting of the recent contrasted CT scan. Will recommend discontinuing Saxenda Consistent carbohydrate diet Patient's most recent A1c was at 11% Patient will need to continue insulin on discharge, follow-up with PCP or endocrinology outpatient. Possible candidate for SGLT2 inhibitor instead of GLP-1 Assessment & Plan (01/20/2022 9:27 AM EDT): Uncontrolled. I suggested the patient use the whole 200 units of Tresiba in the morning and if he needs additional in the evening he can do 10 units at nighttime. He really needs to do the Humalog U200 before the meals he can do 40 units if this is what he is doing now. If he finds that his glucose levels are going low with all of his insulin then we can always decrease the Humalog U200 to 30 units or something of that. In order to prevent hypoglycemia he must not administer Humalog U200 after the meal or without eating. At this point that he does have hypoglycemia with hyperglycemia but mostly hyperglycemia he just needs to be more consistent with insulin administration which she does not always do. He states that he is forgetful. I referred him to see the marine service manager. Today we went over his insulin dosage and amount of insulin boxes that he should be getting. I have actually wrote a higher milliliter amount on the prescription so that the prescriptions will last for more than 90 days and he should not run out. Furthermore he has refills. He was having a concern that he is running out of the medication will have just enough for the follow-up visit. Assessment & Plan (10/06/2021 9:52 AM EDT): Uncontrolled. His hemoglobin A1c is 10.4%. One of the problems is that the patient does not like to monitor glucose levels but he does not like CGM does not want any device is attached to him. He does not want insulin pump attached to him etc. He is tried all other diabetic medications to either develop adverse reaction or they were ineffective. We tried Humulin U 500 and he said that this was horrible swollen throughout the lower extremities. The issue is that he is only using Tresiba U200 and this is basal insulin and it does not work for meals. He needs prandial insulin. At this point and when I tell him to try the Humalog U200 injected today and I increase that by 2 units so he will start on 70-100 = 4 units and increase by 2 units 50 mg/dl. Assessment & Plan (07/03/2021 9:00 AM EST): Uncontrolled. Hemoglobin A1c 07/03/2019 duration. Unfortunately patient is not very compliant with glucose monitoring or even prandial insulin administration. Furthermore he cannot tolerate vitamin D medication prescription tried in the past. So presently is up to him exactly how long he wants to control his diabetes. Is a matter of taking the insulin. Furthermore he has not wanted any devices such as continuous glucose monitors or insulin pumps. He will follow in 3 months. He was advised to do lab work prior to the follow-up visit. Assessment & Plan (04/03/2021 9:24 AM EDT): Uncontrolled. Hemoglobin A1c is 9.0%. The patient will continue to use Tresiba U200 160 units in the morning and he will prefer to do a second dose in the evening anywhere from 40 to 50 units. He is going to start using Humalog U200 40 units 3 times a day with meals. Assessment & Plan (10/02/2020 9:05 AM EDT): Improved control hemoglobin A1c is 8.4% previously was 9%. Still elevated we want it below 7% and I would recommend that he use the Humalog U2 100 as indicated. He would like to return for follow-up visit in 6 months time. I encouraged him to monitor glucose twice a day at least 2 weeks prior to the visit always a fasting and a second alternating between lunch, dinner, and bedtime. Encouraged him to diet and exercise. Assessment & Plan (07/03/2020 9:23 AM EST): Uncontrolled. And previous hemoglobin A1c 9.1 currently is 9.0. He rarely uses still Humalog U2 100. He just does not like it. He would like to increase the Tresiba and that only works but so much but his fasting glucose are in the 200 range and my concern would be that he becomes hypoglycemic overnight. But obviously he is waking up with a very high glucose level so he could benefit from a long-acting insulin. So I have increased it to 200 units daily. He can do 160 units in the morning and 40 units in the afternoon. All conversely he can just do both injections in the morning because it is a long-acting insulin but he prefers to do it twice a day. He needs to be cautious about the Humalog U2 100 now because we have increased the Tresiba. Although the correction scale that I gave him is the lowest possible correction scale. Given follow-up in 3 months. Assessment & Plan (04/02/2020 9:23 AM EDT): I do not have a hemoglobin A1c today but he has elevated fasting glucose levels to 2 late-night eating. He is now willing to use rapid acting insulin and I will prescribe Humalog U200 pounds. So I will give him a correction scale as follows 4 glucose 70-100 =2 units increasing by 2 units every 50 mg/dL. He will continue his other medications listed in the HPI. Assessment & Plan (01/03/2020 9:46 AM EDT): He has a hemoglobin A1c of 7.5% which is fair control I think we could possibly get it lower but he is concerned about using higher dose of Tresiba because of weight gain and insulin does cause weight gain. He is on metformin at the maximum dose. And other medications he has not like to had adverse effects were so he does not want to try them. So we will continue the same regimen we will not change it as for his neuropathy I definitely recommend gabapentin and 100 mg probably is not getting too much for him but I will prescribe gabapentin 300 mg at least in the evening at bedtime and he can try this and see if it works out he states that he is willing to try it. Assessment & Plan (10/17/2019 4:18 PM EDT): Unfortunately I do not have hemoglobin A1c. His fasting glucose levels are very variable. This may be due to eating late night snacks or getting up and eating. At the same time he has very good glycemic levels in the morning. He only had 3 evening glucose levels and 2 of them were good 1 of them was quite high but is unclear if it was done after eating. So based on this I cannot make any adjustments to his medications I would really like to see a hemoglobin A1c if the A1c remains elevated as it was in the past then I would assume that he is having postprandial hyperglycemia and then it would be good to do a CGM at that point to see where he is going high so we can pinpoint the problem and address it. Addressing this could require short acting insulin because as you recall the patient has tried many medications but has been intolerant to most. Assessment & Plan (03/09/2019 9:02 AM EDT): The patient states that he occasionally checks glucose levels but he forgot to bring his meter. He states that he feels things are going very well for glycemic control. He does not feel any symptoms of hypoglycemia hypoglycemia like he did before. Unfortunately without any glycemic levels or hemoglobin A1c I really cannot make any adjustments to his medications. Again he should continue his current medications which is metformin 850 mg twice daily, Tresiba U200 160 units and Saxenda 3.0 which he uses for obesity but also improves glycemic control. 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 Other options include Humulog U 200 with meals. Assessment & Plan (09/08/2018 9:09 AM EDT): Uncontrolled. His hemoglobin A1c has decreased from 9.5-7.3%. Which is a great improvement especially since when he was first seen in the office he had an A1c greater than 14%. However I do cautioned that he has very slight anemia and his hemoglobin A1c may be falsely low. He essentially is on the right medications he needs to work on himself to decrease eating especially on healthy foods. I did suggest using Humalog U200 but he states that he is tried this before and it has not worked. Of course it could work in combination with all his other medications but he does not want to try it and a hemoglobin A1c of 7.3% is lower than I thought we will be able to achieve so he is doing well. I will not make any changes. I did suggest switching Saxenda to Ozempic and seeing if this will have greater weight loss for him but he states that when he was on Trulicity he had good glycemic levels the first 3 days and then by the 3rd day it goes higher. However the data of Ozempic compared to Trulicity shows that it was then pick has doubled the weight loss and doubled the A1c reduction. He did complain regarding neuropathic pain he is already on alpha lipoic acid 300 mg and advised him to increase it to 600 mg. Assessment & Plan (08/25/2018 2:54 PM EDT): Recommend tight glycemic control with a goal A1c less than 7 Assessment & Plan (05/12/2018 9:25 AM EST): Uncontrolled. The last hemoglobin A1c was 9.4%. Based on his glycemic levels he is doing quite well he still does postprandial hyperglycemia but we do not see much of this because he usually does not eat breakfast or lunch. He may have a snack. He tends to eat mostly at night and he is not checking bedtime blood glucose levels so if he has elevations is probably in the evening or overnight and we are not catching it. So this will definitely reflect on his hemoglobin A1c. Unfortunately we cannot repeat one so soon is done every 3 months. I would like him to continue metformin, Tresiba, and Trulicity. However if we can get Saxenda approved for obesity he cannot used to GLP-1 agonists so we will have to discontinue Trulicity but this medication Saxenda will also work for diabetes even though is not a diabetic medication. Assessment & Plan (04/14/2018 10:17 AM EDT): Uncontrolled. He has had drastic improvement in his hemoglobin A1c which was greater than 14% and now is at 9.5%. The glucose levels for the most part look good but I think that we are not checking postprandially and this is where he is going high. On the last visit I was considering adding Humalog U2 100 with meals. He is very reluctant about this because he is been gaining weight and her insulin does cause weight gain although it does improve his glucose levels. On the last visit I also discussed the use of was then pick which is a weekly GLP-1 agonists has better weight loss then Trulicity. This is only slight though. There is another GLP-1 agonists which is used for obesity which is Saxenda and is a daily injectable medication can be used at much higher doses and it will improve his weight and also lower his glucose levels. This is assuming if he can tolerate it because it is associated with nausea, vomiting, diarrhea, and constipation. In the meantime he really does not want to make any changes and I do not want to make any changes until his is here so that we can all discuss it and agree on it. 1 of my concerns is that he tends to have adverse effects to medications and I do not want to ruin the good changes that she is having so far. He is going to monitor glucose levels postprandially as indicated in the HPI. I will see him in 4 weeks time I am not going to make any changes. He will continue on Tresiba 160 units daily, Trulicity 1.5 mg weekly and metformin 850 mg 3 times daily. Assessment & Plan (03/10/2018 10:02 AM EDT): Uncontrolled. Glucose level is 235 mg/dL. I will increase Tresiba U200 from 80 to 160 units. He is concerned about weight gain. I discussed with him that he is actually lost weight since he initially saw me in December he has lost 2 pounds despite the fact that we added insulin and I believe that this is due to the effect of Trulicity. He is tolerating Trulicity well but we are increasing his insulin levels and the fact is that insulin causes weight gain but he has improved glycemic control. This is very important to prevent end-stage organ damage. One of the things that I thought we could do if he continues to gain weight is to probably switch him from Trulicity to Ozempic. Ozempic has a better weight loss profile then Trulicity. Another thing that I want to do is add Humalog U200 which is tried in the past but I think he is going to need something for postprandial hyperglycemia after meals. He needs to do his part by checking his glucose levels. Especially now that his numbers are getting better. I brought up the subject of Invokakarla again and he just refuses to do this even trying a different type of SGLT to inhibitor such as Jardiance he does not want to do it. The only reason I brought it up is because it can help him with weight loss. Today we also discussed his neuropathy and as indicated in the HPI I suggested using gabapentin in the evening so that he can sleep better but he is so opposed to any weight gain and I did tell him that gabapentin can be associated with weight gain he does not want to do it. Assessment & Plan (02/14/2018 10:13 AM EDT): Uncontrolled. His last hemoglobin A1c was greater than 14%. However he has tolerated 2 day study at the higher dose of 1.5 mg weekly and his glycemic levels have improved although they remain elevated average of 340 mg/dL. At this point I will add Tresiba U200 starting at 80 units daily. The dose can be increased to a total of 160 units daily. If there is an improvement in his glycemic levels we can consider adding Humalog U200 which the patient has tried before but said it did not work. However, he did not have any adverse effects with this medication. I think in combination with Tresiba U200 Humalog U200 may be effective. I could be wrong and if there is no benefit the patient is willing to try Humulin U500 again. Weight loss, non-intentional 07/23/2017 Paroxysmal atrial fibrillation History of CVA (cerebrovascular accident) Assessment & Plan (05/15/2025 7:22 PM EST): Patient reports a history of CVA and 2 TIAs. He denies a history of A-fib stating that after last admission when he was discharged on Eliquis his primary care provider immediately discontinued it 09/2024 TTE: Echo showed normal LV function, EF 70%. Mild aortic stenosis. No [id number] shunting noticed at rest with bubble study. No thrombus seen. Continue aspirin and statin as above Continue plan for facial droop as above Resolved Problems Problem Noted Date Diagnosed Date Resolved Date Onychomycosis 08/17/2022 01/01/2023 Tinea pedis of both feet 08/17/2022 Palpitations 08/25/2018 01/01/2023 Assessment & Plan (08/25/2018 2:55 PM EDT): -Patient continues to report palpitations, PVCs noted on ECG -Currently on metoprolol 50 mg daily which could help with some palpitations -Offered patient an event monitor to determine his PVC load or to look for arrhythmia which she has refused. -Encourage patient to increase hydration, and reduce caffeine intake Encounters Date Type Department Care Team Description 05/15/2025 1:57 PM EST - 05/16/2025 2:34 PM EST Hospital Encounter [facility] [address] [place] [phone] Bienvenido Mullins MD Grachev, Maksim, DO Miskovsky, Glenn E, MD Discharge Disposition: Home or Self Care 05/15/2025 Procedure Pass [facility], Mri - [address] [address] 05/15/2025 Procedure Pass [facility], Ct Scan - [address] [address] 04/24/2025 8:00 AM EST Procedure visit [facility] [address] [place] [phone] Olivia Garnica MD Anemia, unspecified 04/05/2025 Telephone [facility] [address] [place] [phone] Deepali Espinal 03/27/2025 Orders Only [facility] [address] [place] [phone] Deepali Espinal Anemia, unspecified (Primary Dx) 03/19/2025 9:30 AM EDT Office Visit [facility] [address] [place] [address] Emmanuel Garcia MD MARY (obstructive sleep apnea) (Primary Dx) 03/19/2025 Telephone [facility] [address] [place] [address] Gabbie Crouch MA 03/19/2025 Telephone [facility] [address] [place] [address] Emmanuel Garcia MD DME (CPAP pressure change (Reliable)) 02/28/2025 Orders Only [facility] [address] [place] [address] Olivia Garnica MD from Last 3 Months Immunizations Immunization Administration Dates Next Due Tdap 05/10/2020 Family History Medical History Relation Comments Stroke Father 2 Stroke Mother 2 Relation Status Comments Father 1 Father 2 Mother 1 Mother 2 Social History Tobacco Use Types Packs/Day Years Used Date Smoking Tobacco: Never Smokeless Tobacco: Never Tobacco Cessation:Counseling Given: Not Answered Alcohol Use Standard Drinks/Week Comments Not Currently [...] Orientation Straight 10/10/2017 11 :56 AM EDT Last Filed Vital Signs Vital Sign Reading Time Taken Comments Blood Pressure 156/93 05/16/2025 9:00 AM EST Pulse 82 05/16/2025 9:00 AM EST Temperature 36.9 C (98.4 F) 05/16/2025 9:00 AM EST Respiratory Rate 18 05/16/2025 9:00 AM EST Oxygen Saturation 96% 05/16/2025 9:00 AM EST Inhaled Oxygen Concentration - - Weight 95.3 kg (210 lb) 05/15/2025 1:59 PM EST Height 180.3 cm (5' 11 ) 05/15/2025 1:50 PM EST Body Mass Index 29.29 05/15/2025 1:50 PM EST Plan of Treatment Upcoming Encounters Date Type Department Care Team (Late st Contact Info) Description 06/19/2025 9:00 AM EST Office Visit [facility] [address] [place] [address] Emmanuel Garcia MD [address] [phone] [email or web address] 07/05/2025 8:45 AM EST Office Visit [facility] [address] [place] [address] Unknown, Unknown, Apple Junior PA-C [address] [address] 07/31/2025 12:10 PM EST Office Visit [facility] [address] [place] [address] Marlo Durand DO [address] [place] [phone] Health Maintenance Due Date Last Done Comments DEPRESSION SCREENING 1977 HEPATITIS C SCREENING 1983 HIV ONE-TIME SCREENING (18-65 YEARS) 1983 PNEUMOCOCCAL VACCINES (50+ years) (1 of 2 - PCV) 1984 COLOGUARD 2010 FIT TEST 2010 FOBT 2010 SIGMOIDOSCOPY 2010 VIRTUAL COLONOSCOPY 2010 RSV VACCINE (1 - Risk 50-74 years 1-dose series) 2015 ZOSTER VACCINES (1 of 2) 2015 DIABETIC EYE EXAM 07/23/2017 INFLUENZA VACCINE (#1) 2025 COVID-19 VACCINE ( - season) 2025 HEMOGLOBIN A1C 08/13/2025 05/15/2025, 07/1 , 09/20/2024, Additional history exists BLOOD PRESSURE 09/17/2025 03/19/2025 CREATININE LEVEL 05/16/2026 05/16/2025, 08/2024, 05/15/2025, Additional history exists POTASSIUM LEVEL 05/16/2026 05/16/2025, 12/0 08/2024, 05/15/2025, Additional history exists EGD 02/21/2028 02/20/2025 Adult Td,Tdap Booster 05/10/2030 05/10/2020 COLONOSCOPY 07/13/2033 07/13/2023 COLORECTAL CANCER SCREENING 07/13/2033 SMOKING STATUS SCREENING (Once After 26 Yrs) Completed 05/15/2025 HEPATITIS A VACCINES Aged Out No long er eligible based on patient's age to complete this topic HIB VACCINES Aged Out No longer eligi ble based on patient's age to complete this topic MENINGOCOCCAL VACCINES (ACWY) Aged Out No longer eligible based on patient's age to complete this topic MENINGOCOCCAL VACCINES (B) Aged Out N o longer eligible based on patient's age to complete this topic Medical Devices Implanted Type Area Pluck Separator Device Identifier Shelf Expiration Date Model / Serial / Lot Bilateral Ear Pinning Procedures Procedure Name Priority Date/Time Associated Diagnosis Comments POCT GLUCOSE Routine 05/16/2025 11:33 AM EST MRI BRAIN (STROKE)WITHOUT CONTRAST Routine 05/16/2025 8:45 AM EST POCT GLUCOSE Routine 05/16/2025 7:38 AM EST CBC Routine 05/16/2025 5:56 AM EST BASIC METABOLIC PANEL (BMP) Routine 05/16/2025 5:56 AM EST XR PELVIS 1-2 VIEW STAT 05/15/2025 9: 56 PM EST POCT GLUCOSE Routine 05/15/2025 8:45 PM EST XR ABDOMEN 1 VIEW STAT 05/15/2025 8:3 1 PM EST POCT GLUCOSE Routine 05/15/2025 7:13 PM EST BASIC METABOLIC PANEL (BMP) Routine 05/15/2025 6:42 PM EST LACTATE (BLOOD GAS) STAT 05/15/2025 6 :42 PM EST POCT GLUCOSE STAT 05/15/2025 5:18 PM EST SARS-COV-2, INFLUENZA A/B, PCR RENEE STAT 05/15/2025 4:50 PM EST COVID PANDEMIC RESPIRATORY VIRAL ORDER (PRO) STAT 05/15/2025 4:50 PM EST XR CHEST 1 VIEW Routine 05/15/2025 4:22 PM EST URINALYSIS WITH REFLEX TO URINE CULTURE STAT 05/15/2025 4:14 PM EST BLOOD CULTURE, ROUTINE STAT 3:27 PM EST BLOOD CULTURE, ROUTINE STAT 3:27 PM EST HEMOGLOBIN A1C STAT 05/15/2025 3:26 PM EST SEDIMENTATION RATE (ESR) STAT 05/15/2025 3:26 PM EST C-REACTIVE PROTEIN (CRP), HIGH SENSITIVITY STAT 05/15/2025 3:26 PM EST LIPID PANEL STAT 05/15/2025 3:26 PM EST TSH WITH REFLEX STAT 05/15/2025 3:26 PM EST ETHANOL, BLOOD STAT 05/15/2025 3:26 PM EST CBC AND DIFFERENTIAL STAT 05/15/2025 3:26 PM EST VENOUS BLOOD GAS STAT 05/15/2025 3:26 PM EST LACTATE (BLOOD GAS) STAT 05/15/2025 3 :26 PM EST PT-INR STAT 05/15/2025 3:26 PM EST LIPASE STAT 05/15/2025 3:26 PM EST LFTS (HEPATIC PANEL) STAT 05/15/2025 3:26 PM EST MAGNESIUM STAT 05/15/2025 3:26 PM EST BASIC METABOLIC PANEL (BMP) STAT 05/15/2025 3:26 PM EST CBC AND DIFFERENTIAL STAT 05/15/2025 3:[address] ANGIO HEAD WITH AND WITHOUT CONTRAST, CT ANGIO NECK WITH CONTRAST Routine 05/15/2025 2:45 PM EST POCT GLUCOSE STAT 05/15/2025 2:09 PM EST ECG 12-LEAD STAT 05/15/2025 2:07 PM EST OUTSIDE PATHOLOGY Routine 02/28/2025 8:4 4 AM EDT ENDOSCOPY, COLON 07/13/2023 9:10 AM EST from Last 3 Months or Most Recently Relevant to Health Maintenance Results * (ABNORMAL) POCT Glucose (05/16/2025 11:33 AM EST) Only the most recent of6 resultswithin the time period is included. Glucose 340(H) 70 - 99 mg/dL 05/16/2025 11:36 AM EST [facility] Blood (Blood) 05/16/2025 11: 33 AM EST 05/16/2025 11:36 AM EST us Aj Hurley MD LAB POCT DOCKED DEVICE UNSO LICTED RESULTS Final Result [facility] [address] [place] [address] * MRI BRAIN (STROKE)WITHOUT CONTRAST (05/16/2025 8:45 AM EST) Anatomical Region Laterality Modality Head Magnetic Resonan ce 05/16/2025 8:49 AM EST Impressions 05/16/2025 9:16 AM EST 1. Old left basal ganglia infarct. Probable mild chronic small vessel disease. No acute or subacute infarct. Narrative 05/16/2025 9:16 AM EST MRI BRAIN (STROKE)WITHOUT CONTRAST Referring clinician's provided indication for this examination in [facility]: * Neuro deficit, acute, stroke suspected TECHNIQUE: MRI BRAIN (STROKE)WITHOUT CONTRAST Multi-sequence, multi-planar MRI of the brain was performed without intravenous contrast. COMPARISON: MR brain September 20, 2024 FINDINGS: Brain Parenchyma: No evidence of acute infarct, mass or hemorrhage. There is an old left caudate and left lentiform nucleus lenticulostriate infarct similar the prior study. There are scattered foci of T2 hyperintensity in the white matter, likely a manifestation of chronic small vessel disease. Ventricular System and Extra-Axial Spaces: There is no evidence of midline shift or hydrocephalus. Extracranial Structures: Expected arterial flow signal is observed at the skull base. Diffuse paranasal sinus mucosal thickening. Procedure Note Gio Jewell DO - 05/16/2025 MRI BRAIN (STROKE)WITHOUT CONTRAST Referring clinician's provided indication for this examination in [facility]: *Neuro deficit, acute, stroke suspected TECHNIQUE: MRI BRAIN (STROKE)WITHOUT CONTRAST Multi-sequence, multi-planar MRI of the brain was performed withoutintravenous contrast. COMPARISON: MR brain September 20, 2024 FINDINGS: Brain Parenchyma: No evidence of acute infarct, mass or hemorrhage. Thereis an old left caudate and left lentiform nucleus lenticulostriate infarctsimilar the prior study. There are scattered foci of T2 hyperintensity inthe white matter, likely a manifestation of chronic small vesseldisease. Ventricular System and Extra-Axial Spaces: There is no evidence of midlineshift or hydrocephalus. Extracranial Structures: Expected arterial flow signal is observed at theskull base. Diffuse paranasal sinus mucosal thickening. IMPRESSION: 1. Old left basal ganglia infarct. Probable mild chronic small vesseldisease. No acute or subacute infarct. Danat Danish S[employer]IOR ENGINEERING ASSOCIATE IMG MR HEAD/NECK Final Result * (ABNORMAL) CBC (05/16/2025 5:56 AM EST) WBC 4.47 4.00 - 11.00 K/uL 05/16/2025 6:50 AM [facility] RBC 4.26(L) 4.50 - 5.90 M/uL 05/16/2025 6:50 AM [facility] Hemoglobin 8.7(L) 13.5 - 17.5 g/dL 05/16/2025 6:50 AM [facility] Hematocrit 28.7(L) 41.0 - 53.0 % 05/16/2025 6:50 AM [facility] MCV 67.4(L) 80.0 - 100.0 fL 05/16/2025 6:50 AM [facility] MCH 20.4(L) 27.0 - 31.0 pg 05/16/2025 6:50 AM [facility] MCHC 30.3(L) 32.0 - 36.0 g/dL 05/16/2025 6:50 AM [facility] PLT 188 150 - 450 K/uL 05/16/2025 6:50 AM [facility] MPV 10.0 8.4 - 12.0 fL 05/16/2025 6:50 AM [facility] RDW-CV 18.8(H) 11.5 - 14.5 % 05/16/2025 6:50 AM [facility] Absolute NRBC 0.00 <=0.00 K cells/uL 05/16/2025 6:50 AM [facility] NRBC 0.0 <=0.0 /100 WBCs 05/16/2025 6:50 AM [facility] Blood (Blood) Venipuncture / Unknown 05/16/2025 5:56 AM EST 05/16/2025 6:26 AM EST us Danat Danish S[employer] ENGINEERING ASSOCIATE LAB BLOOD BKR ORDERABLES Final Result [facility] [address] [place] [address] * (ABNORMAL) Basic Metabolic Panel (BMP) (05/16/2025 5:56 AM EST) Only the most recent of3 resultswithin the time period is included. Sodium 137 136 - 145 mmol/L 05/16/2025 7:10 AM [facility] Potassium 3.5 3.4 - 5.1 mmol/L 05/16/2025 7:10 AM [facility] Chloride 100 98 - 107 mmol/L 05/16/2025 7:10 AM [facility] CO2 24 20 - 31 mmol/L 05/16/2025 7:10 AM [facility] Anion Gap 13 3 - 17 mmol/L 05/16/2025 7:10 AM [facility] BUN 17 6 - 23 mg/dL 05/16/2025 7:10 AM [facility] Creatinine 0.50(L) 0.60 - 1.30 mg/dL 05/16/2025 7:10 AM [facility] eGFR 117 >59 mL/min/1.7 3m2 05/16/2025 7:10 AM [facility] Comment:Estimated glomerular filtration rate calculated using the CKD-EPI refit equation. Glucose 158(H) 70 - 99 mg/dL 05/16/2025 7:10 AM [facility] Calcium 8.1(L) 8.5 - 10.5 mg/dL 05/16/2025 7:10 AM [facility] Blood (Blood) Venipuncture / Unknown 05/16/2025 5:56 AM EST 05/16/2025 6:26 AM EST Danmariluz [employer]ERING [employer]OCI[employer] LAB BLOOD BKR ORDERABLES Final Result [facility] [address] [place] [address] * XR PELVIS 1-2 VIEW (05/15/2025 9:56 PM EST) Anatomical Region Laterality Modality Pelvis Computed Radiogr aphy 05/16/2025 8:07 AM EST Impressions 05/16/2025 8:12 AM EST 1. No visualized radiopaque capsule endoscopy on this pelvic radiograph. Narrative 05/16/2025 8:12 AM EST XR PELVIS 1-2 VIEW Referring clinician's provided indication for this examination in [facility]: Other Indication (Please use free text); Recent pill endoscopy. Need to ensure endoscopy camera is not still in him prior to MRI. Prior abdominal x-ray did not include rectum. COMPARISON: CT ABDOMEN/PELVIS WITH CONTRAST FINDINGS: No displaced fracture. Mild degenerative changes of the bilateral sacroiliac joints and pubic symphysis. Frontal evaluation of the hips demonstrates hypertrophic changes with preserved joint spaces. Suboptimal evaluation of the sacrum due to overlying bowel gas. The endoscopic capsule is not visualized on this pelvic radiograph. Contrast opacification of the urinary bladder. Procedure Note Gómez Calderon MD - 05/16/2025 XR PELVIS 1-2 VIEW Referring clinician's provided indication for this examination in [facility]:Other Indication (Please use free text); Recent pill endoscopy. Need toensure endoscopy camera is not still in him prior to MRI. Prior abdominalx-ray did not include rectum. COMPARISON: CT ABDOMEN/PELVIS WITH CONTRAST FINDINGS: No displaced fracture. Mild degenerative changes of the bilateralsacroiliac joints and pubic symphysis. Frontal evaluation of the hipsdemonstrates hypertrophic changes with preserved joint spaces. Suboptimalevaluation of the sacrum due to overlying bowel gas. The endoscopiccapsule is not visualized on this pelvic radiograph. Contrastopacification of the urinary bladder. IMPRESSION: 1. No visualized radiopaque capsule endoscopy on this pelvicradiograph. us Dez Rivas DO IMG XR PELVIS Final Result * XR ABDOMEN 1 VIEW (05/15/2025 8:31 PM EST) Anatomical Region Laterality Modality Abdomen Computed Radiogr aphy 05/16/2025 8:05 AM EST Impressions 05/16/2025 8:07 AM EST 1. No radiopaque foreign body is noted in the imaged abdomen and pelvis. Narrative 05/16/2025 8:07 AM EST XR ABDOMEN 1 VIEW Referring clinician's provided indication for this examination in [facility]: Other Indication (Please use free text); Recent pill endoscopy and needs to be cleared prior to MRI COMPARISON: XR ABDOMEN SERIES SUPINE WITH DECUBITIS/ERECT AND SINGLE VIEW .. ; CT ABDOMEN/PELVIS WITH CONTRAST FINDINGS: Tubes/Lines: No radiopaque foreign body is noted in the imaged abdomen and pelvis. Bowel: There is distributed throughout the large and small bowel in a nonobstructive pattern. There is a small amount of colonic stool. Bones/Soft Tissues: Degenerative changes are in the imaged spine and bilateral hip joints. Procedure Note Randa Bañuelos MD - 05/16/2025 XR ABDOMEN 1 VIEW Referring clinician's provided indication for this examination in [facility]:Other Indication (Please use free text); Recent pill endoscopy and needsto be cleared prior to MRI COMPARISON: XR ABDOMEN SERIES SUPINE WITH DECUBITIS/ERECT AND SINGLE VIEW.. ; CT ABDOMEN/PELVIS WITH CONTRAST FINDINGS: Tubes/Lines: No radiopaque foreign body is noted in the imaged abdomen andpelvis. Bowel: There is distributed throughout the large and small bowel in anonobstructive pattern. There is a small amount of colonic stool. Bones/Soft Tissues: Degenerative changes are in the imaged spine andbilateral hip joints. IMPRESSION: 1. No radiopaque foreign body is noted in the imaged abdomen andpelvis. us Dez Rivas DO IMG XR ABDOMEN Final Result * Lactate, Whole Blood (05/15/2025 6:42 PM EST) Only the most recent of2 resultswithin the time period is included. Lactate, Whole Blood 1.9 0.5 - 2.0 mmol/L 05/15/2025 6:47 PM EST [facility] Blood (Blood, Venous) Venipuncture / Unknown 05/15/2025 6:42 PM EST 05/15/2025 6:45 PM EST Result [facility] Caron Chu CNP LAB BLOOD BKR ORDERABLES Final Result [address] [address] * (ABNORMAL) SARS-CoV-2, INFLUENZA A/B, PCR (05/15/2025 4:50 PM EST) [facility] SARS-CoV-2 RNA PCR Not Detected Not Detected 05/15/2025 5:22 PM EST [facility] Influenza A PCR Detected(A) Not Detected 05/15/2025 5:22 PM [facility] Influenza B PCR Not Detected Not Detected 05/15/2025 5:22 PM [facility] Swab (Nasopharynx, Bilateral) Non-Blood Collection / Unknown 05/15/2025 4:50 PM EST 05/15/2025 4:58 PM EST Result [facility] Bienvenido Mullins MD LAB GENERAL ORDERABLES Myra l Result Performing Organization Address [facility]/ZIP Co de Phone Number [address] [address] * Symptomatic Respiratory Virus Testing Panel (ED/IP) (05/15/2025 4:50 PM EST) [facility] SARS Comment 05/15/2025 5:01 PM EST [facility] Comment:This test automatica lly orders a COVID-19 PCR and may add Flu, RSV, or other viral tests based on patient clinical factors and site protocols. Results will appear below and separately in chart review when available. Swab (Nasopharynx, Bilateral) Non-Blood Collection / Unknown 05/15/2025 4:50 PM EST 05/15/2025 4:58 PM EST Result [facility] Bienvenido Mullins MD LAB GENERAL ORDERABLES Myra l Result Performing Organization Address City/[facility]/ZIP Co de Phone Number [address] [address] * XR CHEST 1 VIEW (05/15/2025 4:22 PM EST) Anatomical Region Laterality Modality Chest Computed Radiogr aphy 05/15/2025 5:39 PM EST Impressions 05/15/2025 5:41 PM EST No acute abnormality. Narrative 05/15/2025 5:41 PM EST XR CHEST 1 VIEW Referring clinician's provided indication for this examination in [facility]: Sepsis COMPARISON: XR CHEST PA AND LATERAL 2 VIEWS FINDINGS: Devices/Tubes/Lines: None. Lungs: No focal consolidation or pulmonary edema. Pleura: No pleural effusion or pneumothorax. Heart/Mediastinum: Mild cardiac silhouette enlargement. Bones/Soft Tissues: Degenerative changes of the shoulders and spine. Procedure Note Tigist Willoughby MD, PhD - 05/15/2025 XR CHEST 1 VIEW Referring clinician's provided indication for this examination in [facility]:Sepsis COMPARISON: XR CHEST PA AND LATERAL 2 VIEWS FINDINGS: Devices/Tubes/Lines: None. Lungs: No focal consolidation or pulmonary edema. Pleura: No pleural effusion or pneumothorax. Heart/Mediastinum: Mild cardiac silhouette enlargement. Bones/Soft Tissues: Degenerative changes of the shoulders and spine. IMPRESSION: No acute abnormality. us Bienvenido Mullins MD IMG XR CHEST Final Resul t * (ABNORMAL) Urinalysis with Reflex to Urine Culture (05/15/2025 4:14 PM EST) Color Yellow Yellow 05/15/2025 4:28 PM EST [facility] Clarity Clear Clear 05/15/2025 4:28 PM EST [facility] Glucose 3+(A) Negative 05/15/2025 4:28 PM EST [facility] Bilirubin Urine Negative Negative 4:28 PM EST [facility] Ketone Urine Negative Negative 05/15/2025 4:28 PM EST [facility] Specific [place] <=1.005 1.001 - 1.035 05/15/2025 4:28 PM EST [facility] Blood Negative Negative 05/15/2025 4:28 PM [facility] pH 5.5 5.0 - 8.0 05/15/2025 4:28 PM [facility] Protein Negative Negative 05/15/2025 4:28 PM [facility] Nitrites Negative Negative 05/15/2025 4:28 PM [facility] Leukocyte Esterase Negative Negative 05/15/2025 4:28 PM [facility] Urobilinogen Negative Negative 05/15/2025 4:28 PM [facility] Urine (Urine, Voided) Non-Blood Collection / Unknown 05/15/2025 4:14 PM EST 05/15/2025 4:19 PM EST us Bienvenido Mullins MD LAB URINE ORDERABLES Final Result Performing Organization Address [facility]/ZIP Co de Phone Number [address] [address] * Blood Culture, Routine (05/15/2025 3:27 PM EST) Only the most recent of2 resultswithin the time period is included. Blood Culture/Test No growth at 5 days 05/20/2025 3:55 PM [facility] Blood (Blood) Venipuncture / Unknown 05/15/2025 3:27 PM EST 05/15/2025 3:46 PM EST us Bienvenido Mullins MD LAB MICROBIOLOGY CULTURE OR DERABLES Final Result [address] [address] * Ethanol, Blood (05/15/2025 3:26 PM EST) Ethanol <10 Negative; <11 mg/dL 05/15/2025 4:27 PM [facility] Blood (Blood) Venipuncture / Unknown 05/15/2025 3:26 PM EST 05/15/2025 3:46 PM EST Bienvenido Mullins MD LAB BLOOD BKR ORDERABLES Fi nal Result Performing Organization Address [facility]/ZIP Co de Phone Number [address] [address] * C-Reactive Protein (CRP), High Sensitivity (05/15/2025 3:26 PM EST) [facility] CRP, High Sensitivity 102.3 See comment mg/L 05/15/2025 4:38 PM [facility] Comment: Cardiovascular Risk: Low: <1.0 mg/L Average: 1.0-3.0 mg/L High: >3.0 mg/L Acute Inflammation: >10.0 mg/L Persistent elevations may represent non cardiovascular inflammation. Blood (Blood) Venipuncture / Unknown 05/15/2025 3:26 PM EST 05/15/2025 3:46 PM EST Bienvenido Mullins MD LAB BLOOD BKR ORDERABLES Fi nal Result Performing Organization Address City/[facility]/ZIP Co de Phone Number [address] [address] * (ABNORMAL) CBC and Differential (05/15/2025 3:26 PM EST) [facility] WBC 4.85 4.00 - 11.00 K/uL 05/15/2025 3:51 PM [facility] RBC 4.90 4.50 - 5.90 M/uL 05/15/2025 3:51 PM [facility] Hemoglobin 10.0(L) 13.5 - 17.5 g/dL 05/15/2025 3:51 PM [facility] Hematocrit 33.1(L) 41.0 - 53.0 % 05/15/2025 3:51 PM [facility] MCV 67.6(L) 80.0 - 100.0 fL 05/15/2025 3:51 PM [facility] MCH 20.4(L) 27.0 - 31.0 pg 05/15/2025 3:51 PM [facility] MCHC 30.2(L) 32.0 - 36.0 g/dL 05/15/2025 3:51 PM [facility] MPV 9.9 8.4 - 12.0 fL 05/15/2025 3:51 PM [facility] RDW-CV 18.6(H) 11.5 - 14.5 % 05/15/2025 3:51 PM [facility] PLT 192 150 - 450 K/uL 05/15/2025 3:51 PM [facility] Neutrophils 74.1 % 05/15/2025 3:51 PM [facility] Lymphocytes 14.4 % 05/15/2025 3:51 PM [facility] Monocytes 10.5 % 05/15/2025 3:51 PM [facility] Eosinophils 0.0 % 05/15/2025 3:51 PM [facility] Basophils 0.4 % 05/15/2025 3:51 PM [facility] Imm Grans 0.6 % 05/15/2025 3:51 PM [facility] NRBC 0.0 <=0.0 /100 WBCs 05/15/2025 3:51 PM [facility] Absolute Neutrophils 3.59 1.92 - 7.60 K/uL 05/15/2025 3:51 PM [facility] Absolute Lymphocytes 0.70(L) 0.72 - 4.10 K/uL 05/15/2025 3:51 PM [facility] Absolute Monocytes 0.51 0.16 - 1.10 K/uL 05/15/2025 3:51 PM [facility] Absolute Eosinophils 0.00 0.00 - 0.50 K/uL 05/15/2025 3:51 PM [facility] Absolute Basophils 0.02 0.00 - 0.15 K/uL 05/15/2025 3:51 PM [facility] Absolute Imm Grans 0.03 0.00 - 0.09 K/uL 05/15/2025 3:51 PM [facility] Absolute NRBC 0.00 <=0.00 K cells/uL 05/15/2025 3:51 PM [facility] Absolute Neutrophils 3.59 1.92 - 7.60 K/uL 05/15/2025 3:51 PM [facility] Comment:Automated cell count . Manual ANC may differ if performed. Diff Type Auto 05/15/2025 3:51 PM [facility] Blood (Blood) Venipuncture / Unknown 05/15/2025 3:26 PM EST 05/15/2025 3:46 PM EST us Bienvenido Mullins MD LAB BLOOD BKR ORDERABLES Fi nal Result Performing Organization Address City/[facility]/ZIP Co de Phone Number [address] [address] * Thyroid Stimulating Hormone (TSH), with Reflex (05/15/2025 3:26 PM EST) TSH 1.64 0.40 - 5.00 uIU/mL 05/15/2025 4:27 PM [facility] Blood (Blood) Venipuncture / Unknown 05/15/2025 3:26 PM EST 05/15/2025 3:46 PM EST Bienvenido Mullins MD LAB BLOOD BKR ORDERABLES Fi nal Result Performing Organization Address [facility] Co de Phone Number [address] [address] * (ABNORMAL) Hepatic Panel (LFTs) (05/15/2025 3:26 PM EST) AST 12 <40 U/L 05/15/2025 4:27 PM [facility] ALT 13 <50 U/L 05/15/2025 4:27 PM [facility] Alkaline Phosphatase 137(H) 40 - 130 U/L 05/15/2025 4:27 PM [facility] Bilirubin, Total 0.5 0.0 - 1.2 mg/dL 05/15/2025 4:27 PM [facility] Bilirubin, Direct 0.2 0.0 - 0.3 mg/dL 05/15/2025 4:27 PM [facility] Total Protein 7.0 6.4 - 8.3 g/dL 05/15/2025 4:27 PM [facility] Albumin 4.2 3.5 - 5.2 g/dL 05/15/2025 4:27 PM [facility] Globulin 2.8 1.9 - 4.1 g/dL 05/15/2025 4:27 PM [facility] Blood (Blood) Venipuncture / Unknown 05/15/2025 3:26 PM EST 05/15/2025 3:46 PM EST Bienvenido Mullins MD LAB BLOOD BKR ORDERABLES Fi nal Result [address] [address] * (ABNORMAL) Erythrocyte Sedimentation Rate (ESR) (05/15/2025 3:26 PM EST) ESR 32(H) 0 - 20 mm/h 05/15/2025 3:59 PM [facility] Blood (Blood) Venipuncture / Unknown 05/15/2025 3:26 PM EST 05/15/2025 3:46 PM EST Bienvenido Mullins MD LAB BLOOD BKR ORDERABLES Fi nal Result Performing Organization Address City/[facility]/ZIP Co de Phone Number [address] [address] * PT-INR (05/15/2025 3:26 PM EST) PT 11.0 10.0 - 13.0 sec 05/15/2025 4:07 PM [facility] INR 0.9 0.9 - 1.1 05/15/2025 4:07 PM [facility] Comment:Therapeutic Range 2. 0 - 3.5 Blood (Blood) Venipuncture / Unknown 05/15/2025 3:26 PM EST 05/15/2025 3:46 PM EST us Bienvenido Mullins MD LAB BLOOD BKR ORDERABLES Fi nal Result Performing Organization Address City/[facility]/ZIP Co de Phone Number [address] [address] * Magnesium (05/15/2025 3:26 PM EST) Magnesium 2.1 1.7 - 2.6 mg/dL 05/15/2025 4:27 PM EST [facility] Blood (Blood) Venipuncture / Unknown 05/15/2025 3:26 PM EST 05/15/2025 3:46 PM EST Bienvenido Mullins MD LAB BLOOD BKR ORDERABLES Fi nal Result Performing Organization Address [facility] Co de Phone Number [address] [address] * (ABNORMAL) Lipase (05/15/2025 3:26 PM EST) Lipase 70(H) 13 - 60 U/L 05/15/2025 4:27 PM EST [facility] Blood (Blood) Venipuncture / Unknown 05/15/2025 3:26 PM EST 05/15/2025 3:46 PM EST Bienvenido Mullins MD LAB BLOOD BKR ORDERABLES Fi nal Result Performing Organization Address [facility] Co de Phone Number [address] [address] * (ABNORMAL) Hemoglobin A1c (05/15/2025 3:26 PM EST) Hemoglobin A1c 14.8(H) 4.3 - 5.6 % 05/15/2025 4:44 PM [facility] Calculated Mean Blood Glucose 378 mg/dL 05/15/2025 4:44 PM [facility] Comment:There is no establ[facility] normal range for the Estimated Average Glucose (EAG). However, a HbA1c of 5.6% (upper limit of normal) represents an EAG of 114 mg/dL. The diagnostic HbA1c level for diabetes is greater than or equal to 6.5%, which represents an EAG greater than or equal to 140 mg/dL. Blood (Blood) Venipuncture / Unknown 05/15/2025 3:26 PM EST 05/15/2025 3:46 PM EST Bienvenido Mullins MD LAB BLOOD BKR ORDERABLES Fi nal Result Performing Organization Address City/[facility]/ZIP Co de Phone Number [address] [address] * (ABNORMAL) Venous Blood Gas (VBG) (05/15/2025 3:26 PM EST) pH, Venous 7.32 7.31 - 7.41 05/15/2025 3:50 PM EST [facility] pCO2, Venous 50(H) 35 - 45 mm[Hg] 05/15/2025 3:50 PM [facility] pO2, Venous 28(L) 35 - 40 mm[Hg] 05/15/2025 3:50 PM [facility] Base Excess -1.5 -3.0 - 3.0 mmol/L 05/15/2025 3:50 PM [facility] Bicarbonate (HCO3) 25 23 - 28 mmol/L 05/15/2025 3:50 PM [facility] Oxygen Saturation, Venous 43.0(L) 60.0 - 80.0 % 05/15/2025 3:50 PM EST [facility] Blood (Blood, Venous) Venipuncture / Unknown 05/15/2025 3:26 PM EST 05/15/2025 3:45 PM EST Bienvenido Mullins MD LAB BLOOD BKR ORDERABLES Fi nal Result [address] [address] * (ABNORMAL) Lipid Panel (05/15/2025 3:26 PM EST) Cholesterol 145 <200 mg/dL 05/15/2025 4:27 PM [facility] HDL 33(L) >=40 mg/dL 05/15/2025 4:27 PM [facility] Calculated LDL 44 <130 mg/dL 05/15/2025 4:27 PM [facility] Comment:LDL is calculated us ing the James-NIH equation (DANY Cardiol. 2019October 11;5(5):540-548). Non-HDL Cholesterol 112 mg/dL 05/15/2025 4:27 PM [facility] Comment:Guidelines suggest a non-HDL cholesterol goal 30 mg/dL higher than the patient-specific LDL cholesterol goal. Cardiac Risk Ratio 4.4 0.0 - 5.0 2024 4:27 PM [facility] Triglycerides 468(H) <=150 mg/dL 05/15/2025 4:27 PM [facility] Blood (Blood) Venipuncture / Unknown 05/15/2025 3:26 PM EST 05/15/2025 3:46 PM EST us Bienvenido Mullins MD LAB BLOOD BKR ORDERABLES Fi nal Result [address] [address] * CT ANGIO HEAD WITH AND WITHOUT CONTRAST, CT ANGIO NECK WITH CONTRAST (05/15/2025 2:45 PM EST) MGB IMG LINUX SYSTEMS ADMINISTRATOR COMMENT No acute findings on noncontrast head CT. Normal CTA. [facility] Anatomical Region Laterality Modality Neck Computed Tomogra phy 05/15/2025 3:47 PM EST Impressions 05/15/2025 3:51 PM EST 1. No acute intracranial findings on noncontrast head CT. 2. No large vessel occlusion, high-grade stenosis, aneurysm or dissection in the head or neck. A clinically significant result was initiated on 05/15/2025 3:51 PM, Message ID [id number]. Narrative 05/15/2025 3:[address] ANGIO HEAD WITH AND WITHOUT CONTRAST, CT ANGIO NECK WITH CONTRAST Referring clinician's provided indication for this examination in [facility]: Stroke/TIA, assess intracranial arteries. TECHNIQUE: * CTA of the head was performed before and after administration of intravenous contrast using tailored dose modulation techniques. Images were reconstructed in the axial, coronal, and sagittal planes, including angiographic image post-processing. 3D angiographic images with reformatting and post-processing reconstructions were performed and interpreted. * CTA of the neck was performed after administration of intravenous contrast using tailored dose modulation techniques. Images were reconstructed in the axial, coronal, and sagittal planes. 3D angiographic images with reformatting and post- processing reconstructions were performed and interpreted. COMPARISON: MRI BRAIN WITH AND WITHOUT CONTRAST FINDINGS: CT HEAD: Brain Parenchyma: No midline shift, mass effect, parenchymal hemorrhage, or evidence of acute territorial infarct. No enhancing abnormality. Similar small hypodensity in the left cristina radiata. Ventricular System and Extra-Axial Spaces: No extra-axial fluid collections. Basal cisterns are patent. Sulci and ventricles are mildly prominent. No hydrocephalus. Osseous and Extracranial Structures: No calvarial lesion identified. No significant paranasal sinus disease. No orbital abnormality. CTA HEAD: No aneurysm or arteriovenous malformation. Intracranial internal carotid arteries: No occlusion or high grade stenosis. Anterior cerebral arteries: No occlusion or high grade stenosis. Middle cerebral arteries: No occlusion or high grade stenosis. Vertebrobasilar system: No occlusion or high grade stenosis. Posterior cerebral arteries: No occlusion or high grade stenosis. Venous: No dural sinus thrombosis. CTA NECK: Aortic Arch and Branch Vessel Origins: Normal branching anatomy. No high grade stenosis. Right Carotid Artery: No occlusion, high grade stenosis or dissection. Left Carotid Artery: No occlusion, high grade stenosis or dissection. Right Vertebral Artery: No occlusion, high grade stenosis or dissection. Left Vertebral Artery: No occlusion, high grade stenosis or dissection. Venous structures: The jugular veins enhance normally. NON-VASCULAR FINDINGS: Lungs and Airways: No acute abnormality. Soft tissues: No adenopathy. Bones: Degenerative changes of the spine. Procedure Note Lexus Mckenzie MD - 05/15/2025 CT ANGIO HEAD WITH AND WITHOUT CONTRAST, CT ANGIO NECK WITH CONTRAST Referring clinician's provided indication for this examination in Epic:Stroke/TIA, assess intracranial arteries. TECHNIQUE: * CTA of the head was performed before and after administration ofintravenous contrast using tailored dose modulation techniques. Imageswere reconstructed in the axial, coronal, and sagittal planes, includingangiographic image post- processing. 3D angiographic images withreformatting and post-processing reconstructions were performed andinterpreted. * CTA of the neck was performed after administration of intravenouscontrast using tailored dose modulation techniques. Images werereconstructed in the axial, coronal, and sagittal planes. 3D angiographicimages with reformatting and post-processing reconstructions wereperformed and interpreted. COMPARISON: MRI BRAIN WITH AND WITHOUT CONTRAST FINDINGS: CT HEAD: Brain Parenchyma: No midline shift, mass effect, parenchymal hemorrhage,or evidence of acute territorial infarct. No enhancing abnormality.Similar small hypodensity in the left cristina radiata. Ventricular System and Extra-Axial Spaces: No extra-axial fluidcollections. Basal cisterns are patent. Sulci and ventricles are mildlyprominent. No hydrocephalus. Osseous and Extracranial Structures: No calvarial lesion identified. Nosignificant paranasal sinus disease. No orbital abnormality. CTA HEAD: No aneurysm or arteriovenous malformation. Intracranial internal carotid arteries: No occlusion or high gradestenosis. Anterior cerebral arteries: No occlusion or high grade stenosis. Middle cerebral arteries: No occlusion or high grade stenosis. Vertebrobasilar system: No occlusion or high grade stenosis. Posterior cerebral arteries: No occlusion or high grade stenosis. Venous: No dural sinus thrombosis. CTA NECK: Aortic Arch and Branch Vessel Origins: Normal branching anatomy. No highgrade stenosis. Right Carotid Artery: No occlusion, high grade stenosis or dissection. Left Carotid Artery: No occlusion, high grade stenosis or dissection. Right Vertebral Artery: No occlusion, high grade stenosis or dissection. Left Vertebral Artery: No occlusion, high grade stenosis or dissection. Venous structures: The jugular veins enhance normally. NON-VASCULAR FINDINGS: Lungs and Airways: No acute abnormality. Soft tissues: No adenopathy. Bones: Degenerative changes of the spine. IMPRESSION: 1. No acute intracranial findings on noncontrast head CT. 2. No large vessel occlusion, high-grade stenosis, aneurysm or dissectionin the head or neck. A clinically significant result was initiated on 05/15/2025 3:51 PM,Message ID [id number]. us Bienvenido Mullins MD IMG CT HEAD/NECK Final Resu lt * ECG 12-LEAD (05/15/2025 2:07 PM EST) Ventricular Rate EKG/MIN 79 BPM [facility] Atrial Rate 79 BPM [facility] AL Interval 166 ms [facility] QRS Duration 116 ms [facility] QT Interval 408 ms [facility] QTC Interval 467 ms [facility] P [place] 45 degrees [facility] R Wave [place] 66 degrees [facility] T Wave [place] 27 degrees [facility] 05/15/2025 2:07 PM EST 05/16/2025 2:05 PM EST Narrative [facility] - 05/16/2025 2:05 PM EST Normal sinus rhythm Normal ECG When compared with ECG of 20-Sep-2024 11:58, Questionable change in QRS axis Confirmed by [employer] ([id number]) on 05/16/2025 2:05:30 PM us Bienvenido Mullins MD ECG ORDERABLES Final Resul t [facility] * Outside Pathology (02/28/2025 8:44 AM EDT) us Olivia Garnica MD PATHOLOGY ORDERABLES Final Re sult * ENDOSCOPY, COLON (07/13/2023 9:10 AM EST) Narrative Transcriptions Olivia Garnica MD - 07/13/2023 9:10 AM EST [facility] Patient Name: Murali Cedillo MD:: OLIVIA GARNICA MD, Procedure Date: 07/13/2023 9:10 AM Date of : 1965 Age: 58 Admit Type: Outpatient Gender: Male Room: [place] [address] Referring MD: LIBBY GARCÍA DO Exam Type: Colonoscopy Indications: Hematochezia Medications: Monitored Anesthesia Care Procedure: Informed consent was obtained from the patientafter discussion of the indications, limitations, alternatives, benefits, and risks of the procedure. Risks specifically discussed include but are not limited to medication reactions, missed lesions, bleeding, perforation, or the need for emergent surgery. Throughout the procedure, the patient's blood pressure, pulse, end-tidal CO2, and oxygensaturations were monitored continuously. The Colonoscope was introduced through the anus and advanced to the terminal ileum, with identificationof the appendiceal orifice and IC valve. Thecolonoscopy was performed without difficulty. The patient tolerated the procedure well. The quality of thebowel preparation was good. The terminal ileum, ileocecal valve, appendiceal orifice, and rectum were photographed. Complications: No immediate complications. Estimated blood loss:None. Findings: The terminal ileum appeared normal. Examination of the right colon was repeated in retroflexion and again in NBI. Retroflexion wasalso performed in the rectum. Internal hemorrhoids were found duringretroflexion. The hemorrhoids were medium-sized. The exam was otherwise without abnormality. Impression: - The examined portion of the ileum was normal. - Internal hemorrhoids. - The examination was otherwise normal. - No specimens collected. Recommendation: - Patient has a contact number available for emergencies. The signs and symptoms of potential delayed complications were discussed with thepatient. Return to normal activities tomorrow. Written discharge instructions were provided to thepatient. - Repeat colonoscopy in 10 years for screening purposes. - Schedule in-office hemorrhoid banding therapy. Olivia Garnica OLIVIA GARNICA MD 07/13/2023 9:46:09 AM This report has been signed electronically. Number of Addenda: 0 Note Initiated On: 07/13/2023 9:10 AM Procedure Code(s): --- Professional --- 61952, Colonoscopy, flexible; diagnostic, including collection of specimen(s) by brushing or washing, when performed (separateprocedure) --- Technical --- 06062, Colonoscopy, flexible; diagnostic, including collection of specimen(s) by brushing or washing, when performed (separateprocedure) CPT copyright 2021 [employer]. All rights reserved. The codes documented in this report are preliminary and upon invoice coder reviewmay be revised to meet current compliance requirements. Procedure Date: 07/13/2023 9:10:[address] [place] [address] us Libby García DO GI PROCEDURE ORDERABLES Final Re sult from Last 3 Months or Most Recently Relevant to Health Maintenance Insurance [facility] CHOICE [facility] [address] [place] [address] CHOICE [facility] Address: [address] [place] [id number] [facility] [place] [address] [facility] CHOICE [facility] CHOICE [facility] [address] CHOICE [facility] [address] [id number] [place] [address] [facility] CHOICE [facility] NETWORK CHOICE [facility] Advance Directives For more information, please contact: [phone] (9AM - 5PM Amy/[facility], Tuesday-Tuesday) Documents on File Type Date Recorded Patient Inter Fold Roll Cutter Expl anation Healthcare Proxy 09/24/2024 5:06 PM * Full Code (Latest Code Status on File) Date Activated Date Inactivated Comments 05/15/2025 6:19 PM Question Answer Comments Code Status Confirmed With: Patient * Full Code Date Activated Date Inactivated Comments 09/20/2024 2:11 PM 05/15/2025 6:19 PM Question Answer Comments Code Status Confirmed With: Patient * Full Code Date Activated Date Inactivated Comments 02/10/2023 12:47 PM 09/20/2024 2:11 PM Question Answer Comments Code Status Confirmed With: Patient * Full Code Date Activated Date Inactivated Comments 01/01/2023 12:57 AM 02/10/2023 12:47 PM Question Answer Comments Code Status Confirmed With: PatientFamily Care Teams Banquet Director Relationship Specialty Start Date End Date Libby García DO [address] [place] [phone] [email or web address] PCP - General Internal Medicine 08/15/24 Britt Can MBBS [address] [place] [phone] [email or web address] Primary Oncologist Medical Oncology 06/12/24 Additional Source Comments The information contained in this document represents components of the legal health record. It is not the complete legal health record.[facility]
--- OUTSIDE RECORDS SUMMARY | 2025-05-28 14:21 | XMS_ITS | Encounter Summary ---
Author Organization [facility] Address [address] [place] [phone] Phone Care Team Providers Care Meter Changes Records Clerk Name Role Phone Britt Can ARTIS Unavailable [phone] Harish Faria DO Primary Care Provider [phone] Encounter Details Date Type Department Care Team (Late st Contact Info) Description 09/19/2024 Procedure Pass [facility] Scan - [facility] [address] [place] [address] Social History Tobacco Use Types Packs/Day Years [...] 9:42 AM EDT Roseann Osei RN * [place] Suicide Severity Rating Scale (Screener/Recent Self-Report) Question [...] Pulmonary, Allergy and Critical Care Medicine [address] [facility] [place] [address] Emmanuel Garcia MD [address] [facility] 2nd [place] [address] [email or web address] 07/05/2025 8:45 AM EST Office Visit [facility] [address] [place] [address] Unknown, Unknown, MD [place], RUSSELL Chiu [address] [address] 07/31/2025 12:10 PM EST Office Visit [facility] [address] [place] [phone] Marlo Durand DO [address] [place] [phone] documented as of this encounter Visit Diagnoses Not on filedocumented in this encounter Additional Health Concerns Infection Onset Date Last Indicated Resolved Time Resp-Risk 05/15/2025 05/15/2025 05/15/2025 5:22 PM EST Influenza A 05/15/2025 05/15/2025 05/22/2025 7:07 PM EST documented as of this encounter Care Teams Meter Changes Records Clerk Relationship Specialty Start Date End Date Harish Faria DO [address] [place] [address] PCP - General Internal Medicine 08/15/24 Britt Can MBBS [address] [place] [address] Primary Oncologist Medical Oncology 06/12/24 documented as of this encounter Additional Source Comments The information contained in this document represents components of the legal health record. It is not the complete legal health record.[facility]
--- OUTSIDE RECORDS SUMMARY | 2025-05-28 14:21 | XMS_ITS | Encounter Summary ---
Author Organization [facility] Address [address] [place] [address] Phone Care Team Providers Care Supervisor Grove Name Role Phone Britt Can ARTIS Unavailable [phone] Harish Faria DO Primary Care Provider [phone] Encounter Details Date Type Department Care Team (Latest Contact Info) Description 10/04/2024 Transcribe Orders [facility] Jemma [address] 2nd Floor [place], [place] [id number] Sapna Ray, PROSPER 10 [place], [place] [id number] Other iron deficiency anemia (Primary Dx) Social History Tobacco Use Types [...] Pulmonary, Allergy and Critical Care Medicine 10 [place] [address] Emmanuel Garcia MD [address] [address] [email or web address] 07/05/2025 8:45 AM EST Office Visit [facility] 10 [place] [address] Unknown, Unknown, Apple Junior PA-C [address] [address] [email or web address] 07/31/2025 12:10 PM EST Office Visit [facility] 22 [place] [address] Marlo Durand DO 22 [place] [address] [email or web address] Scheduled Orders Name Type Priority Associated Diagnoses Orde r Schedule Fecal immunochemical test x1 (FIT) Lab Routine Other iron deficiency anemia Expected: 10/04/2024, Expires: 10/04/2025 documented as of this encounter Results * Vitamin B12 (10/04/2024 10:09 AM EDT) VITAMIN B12 772 232 - 1,245 pg/mL [facility] Blood 10/04/2024 10:0 9 AM EDT 10/04/2024 10:20 AM EDT us Sapna Ray SEO COORDINATOR LAB BLOOD BKR O RDERABLES Final Result Performing Organization Address [facility]/ZIP Co de Phone Number [address] [address] * Ferritin (10/04/2024 10:09 AM EDT) FERRITIN 182 30 - 400 ug/L [facility] Blood 10/04/2024 10:0 9 AM EDT 10/04/2024 10:20 AM EDT Sapna Ray SEO COORDINATOR LAB BLOOD BKR O RDERABLES Final Result Performing Organization Address [facility]/ZIP Co de Phone Number [address] [address] * Iron and iron binding capacity (10/04/2024 10:09 AM EDT) IRON 73 45 - 160 ug/dL [facility] IRON BINDING CAPACITY 342 228 - 428 ug/dL [facility] TRANSFERRIN SATURAT. 21 20 - 55 % [facility] Blood 10/04/2024 10:0 9 AM EDT 10/04/2024 10:20 AM EDT us Sapna Ray NP LAB BLOOD BKR O RDERABLES Final Result [address] [address] * (ABNORMAL) CBC (10/04/2024 10:09 AM EDT) WBC 6.32 4.00 - 11.00 K/uL [facility] RBC 4.91 4.50 - 5.90 M/uL [facility] HGB 13.4(L) 13.5 - 17.5 g/dL [facility] HCT 41.2 41.0 - 53.0 % [facility] PLT 213 150 - 450 K/uL [facility] MCV 83.9 80.0 - 100.0 [facility] MCH 27.3 27.0 - 31.0 pg [facility] MCHC 32.5 32.0 - 36.0 g/dL [facility] RDW 16.9(H) 11.5 - 14.5 % [facility] MPV 10.5 8.4 - 12.0 fL [facility] NRBC 0.00 0.00 /100 WBCs [facility] ABSOLUTE NRBC 0.00 0.00 K/uL [facility] Blood 10/04/2024 10:0 9 AM EDT 10/04/2024 10:20 AM EDT us Sapna Ray SEO COORDINATOR LAB BLOOD BKR O RDERABLES Final Result [address] [address] documented in this encounter Visit Diagnoses Diagnosis Other iron deficiency anemia- Primary documented in this encounter Additional Health Concerns Infection Onset Date Last Indicated Resolved Time Resp-Risk 05/15/2025 05/15/2025 05/15/2025 5:22 PM EST Influenza A 05/15/2025 05/15/2025 05/22/2025 7:07 PM EST documented as of this encounter Care Teams Supervisor Grove Relationship Specialty Start Date End Date Harish Faria DO [address] [place] [address] PCP - General Internal Medicine 08/15/24 Britt Can MBBS 30 [place] [address] Primary Oncologist Medical Oncology 06/12/24 documented as of this encounter Additional Source Comments The information contained in this document represents components of the legal health record. It is not the complete legal health record.[facility]
--- OUTSIDE RECORDS SUMMARY | 2025-05-28 14:21 | XMS_ITS | Encounter Summary ---
Author Organization [facility] Address [address] [place] [address] Phone Care Team Providers Care Geologist Petroleum Name Role Phone Britt Can ARTIS Unavailable [phone] Harish Faria DO Primary Care Provider [phone] Encounter Details Date Type Department Care Team (Late st Contact Info) Description 08/15/2024 Ancillary Orders [facility], X-Ray - [facility] 30 [place] [address] Selma Ryder PA 6 [place] [address] Acute abdomen (Primary Dx) Social History Tobacco [...] Pulmonary, Allergy and Critical Care Medicine [address] [place] [address] Emmanuel Garcia MD [address] [place] [address] [email or web address] 07/05/2025 8:45 AM EST Office Visit [facility] Gastroenterology [facility] 10 [place] [address] Unknown, Unknown, Apple Junior PA-C [address] [place] [address] 07/31/2025 12:10 PM EST Office Visit [facility] [address] [place] [address] Marlo Durand DO 22 [place] [address] documented as of this encounter Results * XR Abdomen Series Supine with Decubitus/Erect and Single View Chest (08/15/2024 12:21 PM EST) Anatomical Region Laterality Modality Abdomen, Chest Computed Radiogr aphy 08/15/2024 1:20 PM EST Impressions 08/15/2024 1:27 PM EST 1. No acute abdominal abnormality is identified. Mild fecal loading. 2. Atelectasis within the right middle lobe. Narrative 08/15/2024 1:27 PM EST XR ABDOMEN SERIES SUPINE WITH DECUBITIS/ERECT AND SINGLE VIEW CHEST Referring clinician's provided indication for this examination in [facility]: Pain COMPARISON: CT abdomen/pelvis dated January 03, 2023. Abdominal radiograph series dated January 02, 2023. FINDINGS: Tubes/Lines: None. Chest: The heart size is normal. No acute hilar or mediastinal abnormalities are identified. There is minor atelectasis within the right middle lobe. No confluent lobar consolidation, mass or nodule. Abdomen: The bowel gas pattern is without evidence of obstruction. There is no evidence of colonic thumbprinting. Mild fecal loading is present. There is no evidence of free intraperitoneal air. There is no pneumatosis, or portal venous gas. No intraabdominal calcifications are present. Bones: The visualized osseous structures reveal no acute abnormality. Vertebral endplate degenerative changes are present. Spinal curvature convexity to the right. Soft Tissues: No acute soft tissue abnormality. Procedure Note Nine, Stanford Jordan MD - 08/15/2024 XR ABDOMEN SERIES SUPINE WITH DECUBITIS/ERECT AND SINGLE VIEW CHEST Referring clinician's provided indication for this examination in [facility]:Pain COMPARISON: CT abdomen/pelvis dated January 03, 2023. Abdominal radiographseries dated January 02, 2023. FINDINGS: Tubes/Lines: None. Chest: The heart size is normal. No acute hilar or mediastinalabnormalities are identified. There is minor atelectasis within the rightmiddle lobe. No confluent lobar consolidation, mass or nodule. Abdomen: The bowel gas pattern is without evidence of obstruction. Thereis no evidence of colonic thumbprinting. Mild fecal loading is present.There is no evidence of free intraperitoneal air. There is nopneumatosis, or portal venous gas. No intraabdominal calcifications arepresent. Bones: The visualized osseous structures reveal no acute abnormality.Vertebral endplate degenerative changes are present. Spinal curvatureconvexity to the right. Soft Tissues: No acute soft tissue abnormality. IMPRESSION: 1. No acute abdominal abnormality is identified. Mild fecal loading. 2. Atelectasis within the right middle lobe. us Selma PRIETO IMG XR ABDOMEN Final Resul t documented in this encounter Visit Diagnoses Diagnosis Acute abdomen Abdominal pain, unspecified site Acute abdomen- Primary Abdominal pain, unspecified site documented in this encounter Additional Health Concerns Infection Onset Date Last Indicated Resolved Time Resp-Risk 05/15/2025 05/15/2025 05/15/2025 5:22 PM EST Influenza A 05/15/2025 05/15/2025 05/22/2025 7:07 PM EST documented as of this encounter Care Teams Geologist Petroleum Relationship Specialty Start Date End Date Harish Faria DO [address] [place] [address] [email or web address] PCP - General Internal Medicine 08/15/24 Britt Can MBBS [address] [place] [address] [email or web address] Primary Oncologist Medical Oncology 06/12/24 documented as of this encounter Additional Source Comments The information contained in this document represents components of the legal health record. It is not the complete legal health record.[facility]
--- OUTSIDE RECORDS SUMMARY | 2025-05-28 14:21 | XMS_ITS | Encounter Summary ---
Author Organization [facility] Address [address] [place] [address] Phone Care Team Providers Care Pull Over Name Role Phone Britt Can ARTIS Unavailable [phone] Harish Faria DO Primary Care Provider [phone] Encounter Details Date Type Department Care Team (Late st Contact Info) Description 09/19/2024 Procedure Pass [facility], Ct Scan - [facility] 30 [place] [address] Social History Tobacco Use Types Packs/Day Years [...] 9:42 AM EDT Roseann Osei RN * [place] Suicide Severity Rating Scale (Screener/Recent Self-Report) Question [...] Pulmonary, Allergy and Critical Care Medicine 10 [facility] [place] [address] Emmanuel Garcia MD 10 [facility] 2nd [place] [address] [email or web address] 07/05/2025 8:45 AM EST Office Visit [facility] Gastroenterology Clinic 10 [place] [address] Unknown, Unknown, MD Tipton, RUSSELL Chiu [address] [address] 07/31/2025 12:10 PM EST Office Visit [facility] [address] [place] [address] Marlo Durand DO [address] [place] [address] documented as of this encounter Visit Diagnoses Not on filedocumented in this encounter Additional Health Concerns Infection Onset Date Last Indicated Resolved Time Resp-Risk 05/15/2025 05/15/2025 05/15/2025 5:22 PM EST Influenza A 05/15/2025 05/15/2025 05/22/2025 7:07 PM EST documented as of this encounter Care Teams Pull Over Relationship Specialty Start Date End Date Harish Faria DO [address] [place] [address] PCP - General Internal Medicine 08/15/24 Britt Can MBBS [address] [place] [address] Primary Oncologist Medical Oncology 06/12/24 documented as of this encounter Additional Source Comments The information contained in this document represents components of the legal health record. It is not the complete legal health record.[facility]
--- OUTSIDE RECORDS SUMMARY | 2025-05-28 14:21 | XMS_ITS | Encounter Summary ---
Author Organization [facility] Address [address] [place] [address] Phone Care Team Providers Care Rn School Name Role Phone Britt Can ARTIS Unavailable [phone] Harish Faria DO Primary Care Provider [phone] Encounter Details Date Type Department Care Team (Late st Contact Info) Description 09/20/2024 Procedure Pass [facility] 30 [place] [address] Social History Tobacco Use Types Packs/Day Years [...] 9:42 AM EDT Roseann Osei RN * [place] Suicide Severity Rating Scale (Screener/Recent Self-Report) Question Answer Date of Assessment Author 1. Wish to be (Past 1 Month) No 025 9:42 AM PINEDAT Roseann Osei, CELESTE 2. Non-Specific Active Suici mary Thoughts (Past 1 Month) No 09/20/2024 9:42 AM EDT Roseann Osei, RN 6. Suicidal Behavior (Lifetime) No 9:42 AM PINEDAT Roseann Osei, RN documented as of this encounter Plan of Treatment Upcoming Encounters Date Type Department Care Team (Late st Contact Info) Description 06/19/2025 9:00 AM EST Office Visit [facility] Pulmonary, Allergy and Critical Care Medicine 10 [facility] [place] [address] Emmanuel Garcia MD 10 [facility] 2nd [place] [address] [email or web address] 07/05/2025 8:45 AM EST Office Visit [facility] Gastroenterology Clinic 10 [place] [address] Unknown, Unknown, MD Tipton, RUSSELL Chiu [address] [address] 07/31/2025 12:10 PM EST Office Visit [facility] 22 [place] [address] Marlo Durand DO 22 [place] [address] documented as of this encounter Visit Diagnoses Not on filedocumented in this encounter Additional Health Concerns Infection Onset Date Last Indicated Resolved Time Resp-Risk 05/15/2025 05/15/2025 05/15/2025 5:22 PM EST Influenza A 05/15/2025 05/15/2025 05/22/2025 7:07 PM EST documented as of this encounter Care Teams Rn School Relationship Specialty Start Date End Date Harish Faria DO [address] [place] [address] PCP - General Internal Medicine 08/15/24 Britt Can MBBS [address] [place] [address] Primary Oncologist Medical Oncology 06/12/24 documented as of this encounter Additional Source Comments The information contained in this document represents components of the legal health record. It is not the complete legal health record.[facility]
--- OUTSIDE RECORDS SUMMARY | 2025-05-28 14:21 | XMS_ITS | Encounter Summary ---
Author Organization [facility] Address [address] [place] [address] Phone Care Team Providers Care Digital Content Manager Name Role Phone Giana Harish Cabrera DO Primary Care Provider [phone] Britt Can MBBS Unavailable [phone] Harish Faria DO Primary Care Provider [phone] Encounter Details Date Type Department Care Team (Late st Contact Info) Description 10/27/2022 Ancillary Orders [facility], X-Ray - [address] [address] Selma Ryder PA [address] [place] [address] [place] [address] Atypical chest pain Social History Tobacco Use Types Packs/Day Years Used Date Smoking Tobacco: Never Smokeless Tobacco: Never Alcohol Use Standard Drinks/Week Comments Yes 0 (1 standard drink = 0.6 oz pur e alcohol) occassionally Education Answer Date Recorded Are you interested in more education? Not on leanne e 10/08/2022 Are you concerned about learning? Not on file 10/08/2022 No 10/08/2022 No 10/08/2022 Sex and Gender Information Value Date Recorded [...] Pulmonary, Allergy and Critical Care Medicine 10 [facility] [place] [address] Emmanuel Garcia MD 10 [facility] 2nd [place] [address] [email or web address] 07/05/2025 8:45 AM EST Office Visit [facility] Gastroenterology [facility] 10 [place] [address] Unknown, Unknown, Apple Junior PA-C [address] [address] 07/31/2025 12:10 PM EST Office Visit [facility] 22 [place] [address] Marlo Durand DO 22 [place] [address] documented as of this encounter Results * XR CHEST PA AND LATERAL 2 VIEWS (10/27/2022 1:28 PM EDT) Anatomical Region Laterality Modality Chest Computed Radiogr aphy 10/27/2022 5:59 PM EDT Impressions 10/27/2022 6:00 PM EDT No acute findings. Narrative 10/27/2022 6:00 PM EDT XR CHEST PA AND LATERAL 2 VIEWS COMPARISON: 11/06/2021 FINDINGS: Lungs: No pneumonia or pulmonary edema. Pleura: No pleural effusion. No pneumothorax Heart/Mediastinum: Heart size normal. Bones/Soft Tissues: No acute finding Procedure Note Lenny García MD, DOREEN - 10/27/2022 XR CHEST PA AND LATERAL 2 VIEWS COMPARISON: 11/06/2021 FINDINGS: Lungs: No pneumonia or pulmonary edema. Pleura: No pleural effusion. No pneumothorax Heart/Mediastinum: Heart size normal. Bones/Soft Tissues: No acute finding IMPRESSION: No acute findings. Selma Lashabianka Ryder PA IMG XR CHEST Final Resul t documented in this encounter Visit Diagnoses Diagnosis Atypical chest pain Other chest pain Atypical chest pain Other chest pain documented in this encounter Additional Health Concerns Infection Onset Date Last Indicated Resolved Time Resp-Risk 05/15/2025 05/15/2025 05/15/2025 5:22 PM EST Influenza A 05/15/2025 05/15/2025 05/22/2025 7:07 PM EST documented as of this encounter Care Teams Digital Content Manager Relationship Specialty Start Date End Date Harish Faria DO PCP - General 03/31/17 08/14/24 Harish Faria DO [address] [place] [address] PCP - General Internal Medicine 08/15/24 Britt Can MBBS 30 [place] [address] Primary Oncologist Medical Oncology 06/12/24 documented as of this encounter Additional Source Comments The information contained in this document represents components of the legal health record. It is not the complete legal health record.[facility]
--- OUTSIDE RECORDS SUMMARY | 2025-05-28 14:22 | XMS_ITS | Encounter Summary ---
Author Organization [facility] Address [address] [place] [address] [place] [address] Phone Care Team Providers Care Wire Bender Hand Name Role Phone Harish Faria DO Primary Care Provider [phone] Britt Can MBBS Unavailable [phone] Harish Faria DO Primary Care Provider [phone] Reason for Referral * Consultation (Elective) - Closed Specialty Diagnoses / Procedures Referred By Rehana munoz Referred To Contact Pulmonary Disease Diagnoses Dyspnea, unspecified type Selma Ryder PA Phone: tel: fax: [address] [address] Phone: tel: Referral ID Status Reason Start Date Expiration Date Visits Re quested Visits Authorized [id number] Closed 07/13/2021 07/13/2022 1 1 Encounter Details Date Type Department Care Team (Latest Contact Info) Description 07/13/2021 Transcribe Orders [facility] [address] [place] [address] 3rd Floor, [address] [place] [address] Murali Alcala MD 22 [facility], [address] [place] [address] [email or web address] Dyspnea, unspecified type (Primary Dx) Social History Tobacco Use Types [...] Upcoming Encounters Date Type Department Care Team ([facility] st Contact Info) Description 06/19/2025 9:00 AM EST Office Visit [facility] Pulmonary, Allergy and Critical Care Medicine 10 [place] [address] Emmanuel Garcia MD [address] [place] [address] [email or web address] 07/05/2025 8:45 AM EST Office Visit [facility] Gastroenterology [facility] 10 [place] [address] Unknown, Unknown, Apple Junior PA-C [address] [place] [address] 07/31/2025 12:10 PM EST Office Visit [facility] [address] [place] [address] Marlo Durand DO 22 [place] [address] Scheduled Referrals Name Type Priority Associated Diagnoses Orde r Schedule Ambulatory referral to [facility] Pulmonology Outpatient Referral Routine Dyspnea, unspecified type Ordered: 07/13/2021 documented as of this encounter Visit Diagnoses Diagnosis Dyspnea, unspecified type- Primary documented in this encounter Additional Health Concerns Infection Onset Date Last Indicated Resolved Time Resp-Risk 05/15/2025 05/15/2025 05/15/2025 5:22 PM EST Influenza A 05/15/2025 05/15/2025 05/22/2025 7:07 PM EST documented as of this encounter Care Teams Wire Bender Hand Relationship Specialty Start Date End Date Harish Faria DO PCP - General 03/31/17 08/14/24 Harish Faria DO [address] [place] [address] PCP - General Internal Medicine 08/15/24 Britt Can MBBS [address] [place] [address] [email or web address] Primary Oncologist Medical Oncology 06/12/24 documented as of this encounter Additional Source Comments The information contained in this document represents components of the legal health record. It is not the complete legal health record.[facility]
--- OUTSIDE RECORDS SUMMARY | 2025-05-28 14:22 | XMS_ITS | Encounter Summary ---
Author Organization [facility] Address [address] [place] [address] [place] [address] Phone Care Team Providers Care Customer Insight Analyst Name Role Phone Harish Faria DO Primary Care Provider [phone] Britt Can MBBS Unavailable [phone] Harish Faria DO Primary Care Provider [phone] Encounter Details Date Type Department Care Team (Late st Contact Info) Description 03/02/2021 Procedure Pass [facility] [place] [address] [place] [address] Social History Tobacco Use Types Packs/Day Years [...] Pulmonary, Allergy and Critical Care Medicine 10 [place] [address] Emmanuel Garcia MD 10 [facility] 2nd [place] [address] [email or web address] 07/05/2025 8:45 AM EST Office Visit [facility] Gastroenterology Clinic 10 [place] [address] Unknown, Unknown, Apple Junior PA-C [address] [address] 07/31/2025 12:10 PM EST Office Visit [facility] 22 [place] [address] Marlo Durand, DO 22 [place] [address] documented as of this encounter Visit Diagnoses Not on filedocumented in this encounter Additional Health Concerns Infection Onset Date Last Indicated Resolved Time Resp-Risk 05/15/2025 05/15/2025 05/15/2025 5:22 PM EST Influenza A 05/15/2025 05/15/2025 05/22/2025 7:07 PM EST documented as of this encounter Care Teams Customer Insight Analyst Relationship Specialty Start Date End Date Harish Faria DO PCP - General 03/31/17 08/14/24 Harish Faria DO [address] [place] [address] PCP - General Internal Medicine 08/15/24 Britt Can MBBS [address] [place] [address] Primary Oncologist Medical Oncology 06/12/24 documented as of this encounter Additional Source Comments The information contained in this document represents components of the legal health record. It is not the complete legal health record.[facility]
[2025-05-28 14:59] LABS: Iron 28 mcg/dL (45-160); Percent Iron Saturation 8 % (15-50); Total Iron Binding Capacity 349 mcg/dL (228-428); Unsaturated Iron Binding 321 ug/dL
[2025-05-28 15:04] LABS: Ferritin 16 ng/mL (20-250)
== END 2025-05-28 10:57 | disposition home or self-care (01) ==
LOC: HO.MANLDS 10:56
PROVIDERS: Visit Provider Physician Assistant
DX: D50.0 Iron deficiency anemia secondary to blood loss (chronic) (principal)
CPT/HCPCS: 36415; 82728; 83540; 85025